=== PATIENT | female | born 1990 | race Caucasian/White ===

== ENCOUNTER 2021-01-20 19:16 | Emergency (ER) | payer OTHER, SELFPAY ==
[2021-01-20 19:24] VITALS: BP 127/83; PULSE 84; RESP 18; TEMP 36.8; O2SAT 96
--- NOTE | 2021-01-20 21:04 | ED_ITS ---
HPI - Dental/Oral General Chief complaint: Dental/Oral Stated complaint: dental problems Time Seen by Provider: 01/20/21 20:37 History of Present Illness HPI Narrative: Patient is a 30-year-old female who presents ER with dental pain. Tooth #12. No facial swelling. Pain began last night. Has chronic fractured tooth over the last couple months. No difficulty breathing or swallowing. Pain increases with eating and drinking. Related Data Allergies Allergy/AdvReac Type Severity Reaction Status Date / Time shellfish derived Allergy Intermediate Swelling Verified 08/25/17 00:02 Review of Systems Constitutional: Constitutional: Denies chills, Denies fever(s) and Denies weakness ENT: Denies dysphagia, Denies nasal congestion and Denies sore throat Comments: Dental pain PMFSH Past Medical History Medical History (Updated 01/20/21 @ 21:06 by David Roberson MD) Healthy female adult Surgical History Surgical History (Updated 01/20/21 @ 21:05 by David Roberson MD) No history of previous surgery Exam Narrative: Exam Narrative: GENERAL: Well-appearing, well-nourished, and in no acute distress. HEAD: Normocephalic, atraumatic. ENT: Mucous membranes moist. Poor dentition. No drainable abscess. No facial swelling. Tender tooth #12. SKIN: Warm, dry, no rash. NEURO: Alert and oriented x3. Course Course Emergency Course: Discharge home. Parrish here for pain. Vital Signs Vital signs: Vital Signs Temperature 98.2 F 01/20/21 19:24 Pulse Rate 84 01/20/21 19:24 Respiratory Rate 18 01/20/21 19:24 Blood Pressure 127/83 01/20/21 19:24 Pulse Oximetry 96 01/20/21 19:24 Temperature 98.2 F 01/20/21 19:24 Pulse Rate 84 01/20/21 19:24 Respiratory Rate 18 01/20/21 19:24 Blood Pressure 127/83 01/20/21 19:24 Pulse Oximetry 96 01/20/21 19:24 Discharge Plan Discharge Clinical Impression: Toothache Patient Disposition: Home, Self-Care Condition: Stable Instructions: Antibiotic Form, Toothache (ED) Additional Instructions: Return to the ER if you cannot breathe, you cannot swallow, you lose consciousness, you have additional concerns. Prescriptions: New ibuprofen 800 mg tablet 800 mg PO TID Qty: 20 RF: 0 amoxicillin-pot clavulanate [Augmentin] 875-125 mg tablet 1 tablet PO Q12H Qty: 14 RF: 0 Follow-up/Referrals: Dental Referral Line [Outside] - 1 Week CHARITO,JACK POMPA [Primary Care Provider] - Stand Alone Forms: Work/School Release IP
[2021-01-20] MEDS: HYDROcodone/acetaminophen (*CRX) 5-325 MG TABLET 1 TAB PO (21:08)
[2021-01-20 21:26] VITALS: BP 127/84; PULSE 86; RESP 16; TEMP 36.3; O2SAT 98
== END 2021-01-20 21:27 | disposition home or self-care (01) ==
PROVIDERS: Emergency Provider Emergency Medicine; PCP Physician Assistant
DX: K08.89 Other specified disorders of teeth and supporting structures (principal)
CPT/HCPCS: 99283; A9270

== ENCOUNTER 2021-04-21 08:07 | Emergency (ER) | payer OTHER, SELFPAY ==
[2021-04-21 08:08] VITALS: BP 110/73; PULSE 89; RESP 16; TEMP 36.2; O2SAT 95
--- NOTE | 2021-04-21 08:35 | ED.DENTAL ---
HPI - Dental/Oral General Chief complaint: Dental/Oral Stated complaint: broken tooth Time Seen by Provider: 04/21/21 08:31 Source: patient Mode of arrival: ambulatory Limitations: no limitations History of Present Illness HPI Narrative: 30-year-old with no major medical problems here with a fractured tooth. She states that she was eating breakfast, broke her tooth complaints of pain she denies any fever or chills. MD Complaint: tooth pain Location: Tooth # (14) Onset (ago): hour(s) (1) Severity: moderate Exacerbating factors: nothing Related Data Home Medications Medication Instructions Recorded Confirmed albuterol sulfate INHALATION 04/21/21 epinephrine 04/21/21 medroxyprogesterone mg IM 04/21/21 Allergies Allergy/AdvReac Type Severity Reaction Status Date / Time shellfish derived Allergy Intermediate Swelling Verified 04/21/21 08:11 Review of Systems Review of Systems: All systems reviewed & are unremarkable except as noted in HPI and below Constitutional: Constitutional: Reports no additional constitutional complaints Eyes: Eyes: Reports no additional eye complaints ENT: Reports as per HPI Cardiovascular: Cardiovascular: Reports no additional cardiovascular complaints Respiratory: Respiratory: Reports no additional respiratory complaints Gastrointestinal: Gastrointestinal: Reports no additional gastrointestinal complaints Musculoskeletal: Musculoskeletal: Reports no additional musculoskeletal complaints PMFSH Past Medical History Medical History Healthy female adult Surgical History Surgical History No history of previous surgery Exam Narrative: GENERAL: Well-appearing, well-nourished, and in no acute distress. HEAD: Normocephalic, atraumatic. EYES: PERRLA and EOMI. ENT: Mucous membranes moist. Fracture #14 NECK: Supple. CHEST: Clear to auscultation. No respiratory distress. HEART: Regular rate and rhythm. No murmur heard. Normal peripheral pulses.. EXTREMITIES: Normal range of motion. No edema. SKIN: Warm, dry, no rash. NEURO: No focal deficits. Alert and oriented x3. PSYCH: Normal mood and affect. Course Vital Signs Vital signs: Vital Signs Temperature 36.2 C L 04/21/21 08:08 Pulse Rate 89 04/21/21 08:08 Respiratory Rate 16 04/21/21 08:08 Blood Pressure 110/73 04/21/21 08:08 Pulse Oximetry 95 04/21/21 08:08 Temperature 36.2 C L 04/21/21 08:08 Pulse Rate 89 04/21/21 08:08 Respiratory Rate 16 04/21/21 08:08 Blood Pressure 110/73 04/21/21 08:08 Pulse Oximetry 95 04/21/21 08:08 Discharge Plan Discharge Clinical Impression: Dental caries Fracture of tooth Qualifiers: Encounter type: initial encounter Fracture type: closed Qualified Code(s): S02.5XXA - Fracture of tooth (traumatic), initial encounter for closed fracture Patient Disposition: Home, Self-Care Condition: Stable Instructions: Antibiotic Form, Toothache (ED) Additional Instructions: Take antibiotic as prescribed, follow-up with the dentist Prescriptions: New amoxicillin 875 mg tablet 875 mg PO Q12H Qty: 20 RF: 0 naproxen [Naprosyn] 500 mg tablet 500 mg PO BID Qty: 14 RF: 0 No Action epinephrine 0.3 mg/0.3 mL auto-injector RF: 0 albuterol sulfate 90 mcg/actuation HFA aerosol inhaler INHALATION RF: 0 medroxyprogesterone 150 mg/mL suspension IM RF: 0 Follow-up/Referrals: PHYSICIAN NOT ON STAFF,NONSTAFF [Primary Care Provider] - Stand Alone Forms: Work/School Release IP Time of Disposition: 08:38
== END 2021-04-21 08:49 | disposition home or self-care (01) ==
LOC: ANHED 08:41
PROVIDERS: Emergency Provider Family Medicine
DX: K02.9 Dental caries, unspecified (principal); S02.5XXA Fracture of tooth (traumatic), initial encounter for closed fracture; X58.XXXA Exposure to other specified factors, initial encounter
CPT/HCPCS: 99283

== ENCOUNTER 2021-06-24 18:34 | Emergency (ER) | payer OTHER, SELFPAY ==
--- NOTE | ~2021-06-24 | XR_ITS ---
XR wrist LT min 3V 06/24/2021 18:54 Indication: Medial wrist pain Procedure: 4 views left wrist Comparison: No prior studies for comparison. Findings: No acute fracture, subluxation or dislocation. No significant soft tissue abnormality. Ther e is normal mineralization with anatomic alignment. No foreign bodies. Impression: 1: No acute bone or joint abnormality. Reviewed, dictated and finalized at location A. ANALYST ETL DEVELOPER Impression: 1: No acute bone or joint abnormality.
[2021-06-24 18:39] VITALS: BP 125/80; PULSE 86; RESP 16; TEMP 36.1; O2SAT 100
--- NOTE | 2021-06-24 19:58 | ED.UPPEXIN ---
HPI - Extremity Injury (Upper) General Chief Complaint: Extremity Injury, Upper Stated Complaint: left wrist injury Time Seen by Provider: 06/24/21 19:31 Source: patient and RN notes reviewed Mode of arrival: ambulatory Limitations: no limitations History of Present Illness HPI narrative: Patient complaining of left wrist pain, started 4 days ago while using grilled press at work. Patient felt a pop at that time, and been hurting since. Worse with certain activities using left hand better when she does not use left wrist. Related Data Home Medications Medication Instructions Recorded Confirmed albuterol sulfate INHALATION 04/21/21 epinephrine 04/21/21 medroxyprogesterone mg IM 04/21/21 Allergies Allergy/AdvReac Type Severity Reaction Status Date / Time shellfish derived Allergy Intermediate Swelling Verified 06/24/21 19:37 Review of Systems Review of Systems: CONSTITUTIONAL: Denies fever, chills, or sweats. EYES: Denies visual changes, redness, or discharge. ENT: Denies rhinorrhea, congestion, sore throat, or otalgia. CARDIOVASCULAR: Denies chest pain, palpitations, or edema. RESPIRATORY: Denies cough or dyspnea. GASTROINTESTINAL: Denies abdominal pain, nausea, vomiting, or diarrhea. GENITOURINARY: Denies dysuria or hematuria. SKIN: Denies rash or itching. MUSCULOSKELETAL: Denies back pain, joint pain, or myalgia. NEUROLOGIC: Denies headache, numbness, or weakness. PSYCHIATRIC: Denies anxiety or depression. PMFSH Past Medical History Medical History Healthy female adult Surgical History Surgical History No history of previous surgery Exam Narrative: General appearance: Well-developed, well-nourished Skin: Normal color Head: Normocephalic, nontraumatic Eyes: Clear conjunctiva Chest and respiratory: Airway patent, no respiratory distress, no accessory muscle use Heart: Regular rate/rhythm Vascular: Normal peripheral pulses, normal capillary refill. Musculoskeletal: Left wrist showed diffuse tenderness, no swelling, no deformity. Neurologic: Alert and oriented ?3, SHOULDER JOINER is normal as tested, no gross motor deficit Course Course Emergency Course: Stable Reevaluation(s) Reevaluation #1: Patient declined to be off work tomorrow Date: 06/24/21 Time: 20:16 Vital Signs Vital signs: Vital Signs Temperature 36.1 C L 06/24/21 18:39 Pulse Rate 86 06/24/21 18:39 Respiratory Rate 16 06/24/21 18:39 Blood Pressure 125/80 06/24/21 18:39 Pulse Oximetry 100 06/24/21 18:39 Temperature 36.1 C L 06/24/21 18:39 Pulse Rate 86 06/24/21 18:39 Respiratory Rate 16 06/24/21 18:39 Blood Pressure 125/80 06/24/21 18:39 Pulse Oximetry 100 06/24/21 18:39 MDM - Extremity Injury (Upper) Imaging Data Radiologist's impression: Impressions Wrist X-Ray 06/24/21 18:57 Impression: 1: No acute bone or joint abnormality. Critical Care Time Critical Care Time Critical Care Time: No Discharge Plan Discharge Clinical Impression: Sprain and strain of wrist Patient Disposition: Home, Self-Care Condition: Stable Instructions: Antibiotic Form, Wrist Sprain (ED) Additional Instructions: Return if symptoms are worsening , call your family physician for appointment, take Tylenol as as needed for aches and pain, continue home medications. , keep left wrist elevated, left wrist splint, Prescriptions: New naproxen [Naprosyn] 500 mg tablet 500 mg PO BID PRN (Reason: pain) Qty: 10 RF: 0 No Action epinephrine 0.3 mg/0.3 mL auto-injector RF: 0 albuterol sulfate
--- NOTE | 2021-06-24 21:05 | PC.NURSE ---
splint not available, erp provided a picture for the patient to purchase at the store.
[2021-06-24 21:06] VITALS: BP 120/72; PULSE 85; RESP 16; O2SAT 100
== END 2021-06-24 21:10 | disposition home or self-care (01) ==
PROVIDERS: Emergency Provider Emergency Medicine; PCP Physician Assistant
DX: S63.502A Unspecified sprain of left wrist, initial encounter (principal); X50.0XXA Overexertion from strenuous movement or load, initial encounter
CPT/HCPCS: 29125; 73110; 99283

== ENCOUNTER 2021-07-06 00:09 | Emergency (ER) | payer OTHER, SELFPAY ==
[2021-07-06 00:14] VITALS: BP 121/75; PULSE 77; RESP 18; TEMP 37.1; O2SAT 100
[2021-07-06 04:20] VITALS: BP 99/61; PULSE 77; RESP 18; O2SAT 98
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
[2021-07-06 05:52] VITALS: BP 120/78; PULSE 85; RESP 16; O2SAT 99
== END 2021-07-06 05:53 | disposition home or self-care (01) ==
PROVIDERS: Emergency Provider Emergency Medicine
DX: R07.9 Chest pain, unspecified (principal); S39.92XA Unspecified injury of lower back, initial encounter; R10.84 Generalized abdominal pain; M79.606 Pain in leg, unspecified; V49.40XA Driver injured in collision with unspecified motor vehicles in traffic accident, initial encounter
CPT/HCPCS: 99283

== ENCOUNTER 2021-07-10 19:04 | Emergency (ER) | payer OTHER, SELFPAY ==
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
[2021-07-10 19:07] VITALS: BP 140/89; PULSE 96; RESP 16; TEMP 36; O2SAT 100
[2021-07-10 22:08] LABS: Basophils Percent Auto 0.3 % (0.2-1.2); Eosinophils Absolute Auto 0.5 K/mm3 (0-0.3); Eosinophils Percent Auto 4.8 % (0-4.4); Hematocrit 40.8 % (37.0-47.0); Hemoglobin 13.9 g/dL (12.0-15.0); Immature Granulocyte Absolute 0.04 K/mm3 (0.00-0.031); Immature Granulocyte Percent A 0.4 % (0-0.5); Lymphocytes Absolute Auto 3.31 K/mm3 (0.9-3.2); Lymphocytes Percent Auto 32.1 % (18.3-44.2); Mean Corpuscular HGB Conc 34.1 g/dl (32-36); Mean Corpuscular Hemoglobin 31.5 pg (26-34); Mean Corpuscular Volume 92.5 fl (80-100); Mean Platelet Volume 10.8 fl (7.4-10.4); Monocytes Absolute Auto 0.8 K/mm3 (0.1-0.6); Monocytes Percent Auto 7.7 % (2.6-8.5); Neutrophils Absolute Auto 5.6 K/mm3 (1.3-6.7); Neutrophils Percent Auto 54.7 % (45.5-73.1); Platelet Count Result 248 k/mm3 (150-375); Red Blood Count 4.41 M/mm3 (4.2-5.4); Red Cell Distribution Width 12.8 % (11.5-14.5); White Blood Count 10.3 K/mm3 (4.5-10.0)
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
[2021-07-10 22:17] LABS: Alanine Aminotransferase 53 U/L (4-35); Albumin Level 4.6 g/dL (3.5-5.1); Alkaline Phosphatase 78 U/L (38-126); Anion Gap 10 mmol/L (8-16); Aspartate Amino Transferase 32 U/L (14-36); Bilirubin,Total 0.5 mg/dL (0.2-1.3); Blood Urea Nitrogen 14 mg/dL (7-17); Calcium 9.4 mg/dL (8.4-10.2); Carbon Dioxide 20 mmol/L (22-30); Chloride 106 mmol/L (98-107); Estimated CRCL calculation 121 ml/min; Estimated Glomerular Filt Rate > 60; Glucose 102 mg/dL (65-110); Potassium 3.9 mmol/L (3.4-5.0); Sodium 136 mmol/L (137-145)
[2021-07-10 22:46] VITALS: BP 119/88; PULSE 78; RESP 18; TEMP 36.5; O2SAT 100
[2021-07-10 23:14] LABS: Add Urine Microscopic? NO; Appearance Urine Clear (Clear); Bilirubin Urine Negative (Negative); Blood Urine Negative (Negative); Color Urine Yellow (Yellow); Glucose Urine UA Negative (Negative); Ketones Urine Negative (Negative); Leukocyte Esterase Ur Negative LEU/UL (Negative); Nitrate Urine Negative (Negative); Protein Urine Negative (Negative); Urobilinogen Urine Negative mg/dL (<2.0)
--- NOTE | 2021-07-10 23:15 | PC.NURSE ---
Assumed care of pt, report received from Cinthia ANSARI. Pt in imaging at this time.
[2021-07-10 23:57] VITALS: BP 108/75; PULSE 93; RESP 16; O2SAT 100
[2021-07-11] MEDS: KETOROLAC 30 MG/ML VIAL (*BKC) IV PUSH (00:07)
[2021-07-11 00:30] VITALS: BP 105/74; PULSE 78; RESP 16; O2SAT 98
== END 2021-07-11 00:35 | disposition home or self-care (01) ==
PROVIDERS: Emergency Provider Emergency Medicine
DX: S39.92XA Unspecified injury of lower back, initial encounter (principal); S16.1XXA Strain of muscle, fascia and tendon at neck level, initial encounter; R10.9 Unspecified abdominal pain; K57.90 Diverticulosis of intestine, part unspecified, without perforation or abscess without bleeding; N20.0 Calculus of kidney; V43.52XA Car driver injured in collision with other type car in traffic accident, initial encounter
CPT/HCPCS: 36415; 71046; 72125; 74176; 80053; 81003; 81025; 85025; 96374; 99284; J1885

== ENCOUNTER 2022-04-11 11:10 | Emergency (ER) | payer OTHER, SELFPAY ==
--- NOTE | ~2022-04-11 | CT_ITS ---
EXAMINATION:CT diagnostic chest w con DATE: 04/11/2022 14:49 INDICATION: Shortness of breath. TECHNIQUE: Computed tomography (CT) of the chest was performed with 75 mL Omnipaque 350 intravenous c ontrast. Automated exposure control and iterative reconstruction technique were employed. The dose-le ngth product (DLP) was 245.55 mGy-cm. COMPARISON: CT abdomen and pelvis 07/10/2021 FINDINGS: The lungs demonstrate mild atelectasis. No pleural effusion. The heart size is normal. The heart size is normal. No pericardial effusion. There are changes of cholecystectomy. There is cortica l thinning of the kidneys. The bones are unremarkable. IMPRESSION: 1. No etiology for the patient's symptoms. Reviewed, dictated and finalized at location A.
[2022-04-11 11:12] VITALS: BP 126/85; PULSE 75; RESP 16; TEMP 36.6; O2SAT 100
--- NOTE | 2022-04-11 12:32 | ED.SOB ---
HPI - SOB/Dyspnea General Chief Complaint: Shortness of Breath/Dyspnea Stated Complaint: SOB Time Seen by Provider: 04/11/22 12:25 Source: patient and RN notes reviewed Mode of arrival: ambulatory Limitations: no limitations History of Present Illness HPI Narrative: 14 years old white female presents with shortness of breath after having esophageal stretching procedure 48 hours ago at [facility]/Dr. Polk. She denies any fever, chills, nausea, vomiting, coughing, chest pain or back pain. Also complaining of epigastric pain. Patient is able to eat and keeps everything down without any restriction. Patient reports that her shortness of breath is episodic's, mainly at rest, last for few seconds up to 1 minute then spontaneously go away. Currently does not have any shortness of breath. Patient denies aggravating or relieving factors patient patient is a smoker and have history of asthma, currently on albuterol treatment. Patient reports a lot of stress lately Related Data Home Medications Medication Instructions Recorded Confirmed albuterol sulfate 90 mcg/actuation inhalation 04/21/21 aerosol inhaler epinephrine 0.3 mg/0.3 mL 04/21/21 injection, auto-injector medroxyprogesterone 150 mg/mL mg IM 04/21/21 intramuscular suspension Allergies Allergy/AdvReac Type Severity Reaction Status Date / Time shellfish derived Allergy Intermediate Swelling Verified 07/10/21 22:56 Review of Systems Review of Systems: All systems reviewed & are unremarkable except as noted in HPI and below PMFSH Past Medical History Medical History Healthy female adult Surgical History Surgical History No history of previous surgery Social History Social History Smoking status: Never smoker Exam Narrative: General appearance: Well-developed, well-nourished Skin: Normal color Head: Normocephalic, nontraumatic Eyes: Clear conjunctiva ENT: Oropharynx normal, ears normal, nose normal Neck: Supple, nontender Chest and respiratory: Airway patent, no respiratory distress, no accessory muscle use Heart: Regular rate/rhythm Abdomen: Soft, mild epigastric tenderness, no guarding or rebound, no organomegaly, quiet bowel sounds Vascular: Normal peripheral pulses, normal capillary refill. Musculoskeletal: Normal range of motion, nontender back Neurologic: Alert and oriented ?3, [employer] is normal as tested, no gross motor deficit Course Course Emergency Course: Work-up today showed no significant finding to explain patient's shortness of breath, her oxygenation on room air is 99% Consultations Consultation #1: Dr. Polk, back winder at [facility], Outpatient follow-up at 8 AM on April 17, 2022 Date: 04/11/22 Time: 15:44 Vital Signs Vital signs: Vital Signs Temperature 36.6 C 04/11/22 11:12 Pulse Rate 75 04/11/22 11:12 Respiratory Rate 16 04/11/22 11:12 Blood Pressure 126/85 04/11/22 11:12 Pulse Oximetry 100 04/11/22 11:12 Oxygen Delivery Room Air 04/11/22 11:12 Temperature 36.6 C 04/11/22 11:12 Pulse Rate 75 04/11/22 11:12 Respiratory Rate 16 04/11/22 11:12 Blood Pressure 126/85 04/11/22 11:12 Pulse Oximetry 100 04/11/22 11:12 Oxygen Delivery Room Air 04/11/22 11:47 MDM - SOB/Dyspnea Differential Diagnosis Differential diagnosis: Likely community acquired pneumonia, asthma with exacerbation and other (Anxiety, depression) ECG Data EKG #1: Attestation: I personally reviewed and interpreted this ECG as follows:
--- NOTE | 2022-04-11 12:35 | ECG_ITS ---
Measurements Intervals Shirley Rate: 69 P: 23 SD: 125 QRS: 25 QRSD: 89 T: 25 QT: 393 QTc: 423 Interpretive Statements SINUS RHYTHM NORMAL ECG NO PREVIOUS ECG AVAILABLE FOR COMPARISON Electronically Signed On 04-11-2022 13:00:03 CDT by Reed Atkinson D.O.
[2022-04-11 12:51] VITALS: BP 124/84; PULSE 78; RESP 18; O2SAT 97
[2022-04-11 12:52] VITALS: BP 124/84; PULSE 67; RESP 14; O2SAT 97
[2022-04-11 13:01] VITALS: BP 114/81; PULSE 73; RESP 17; O2SAT 99
[2022-04-11 13:27] LABS: Basophils Percent Auto 0.4 % (0.2-1.2); Eosinophils Absolute Auto 0.2 K/mm3 (0-0.3); Eosinophils Percent Auto 2.1 % (0-4.4); Immature Granulocyte Absolute 0.02 K/mm3 (0.00-0.031); Immature Granulocyte Percent A 0.3 % (0-0.5); Lymphocytes Absolute Auto 1.76 K/mm3 (0.9-3.2); Lymphocytes Percent Auto 23.1 % (18.3-44.2); Mean Corpuscular HGB Conc 34.1 g/dl (32-36); Mean Corpuscular Hemoglobin 31.2 pg (26-34); Mean Corpuscular Volume 91.3 fl (80-100); Mean Platelet Volume 10.9 fl (7.4-10.4); Monocytes Absolute Auto 0.5 K/mm3 (0.1-0.6); Monocytes Percent Auto 6.7 % (2.6-8.5); Neutrophils Absolute Auto 5.1 K/mm3 (1.3-6.7); Neutrophils Percent Auto 67.4 % (45.5-73.1); Platelet Count Result 244 k/mm3 (150-375); Red Blood Count 4.49 M/mm3 (4.2-5.4); Red Cell Distribution Width 12.6 % (11.5-14.5); White Blood Count 7.6 K/mm3 (4.5-10.0)
[2022-04-11 13:34] LABS: Alanine Aminotransferase 83 U/L (6-35); Albumin Level 4.8 g/dL (3.5-5.1); Alkaline Phosphatase 89 U/L (38-126); Anion Gap 14 mmol/L (8-16); Aspartate Amino Transferase 43 U/L (14-36); Bilirubin,Total 0.6 mg/dL (0.2-1.3); Blood Urea Nitrogen 8 mg/dL (7-17); Calcium 9.3 mg/dL (8.4-10.2); Carbon Dioxide 22 mmol/L (22-30); Chloride 105 mmol/L (98-107); Estimated CRCL calculation 102 ml/min; Estimated Glomerular Filt Rate > 60; Glucose 94 mg/dL (65-110); Potassium 4.4 mmol/L (3.4-5.0); Sodium 141 mmol/L (137-145)
[2022-04-11 14:01] VITALS: BP 110/81; PULSE 82; RESP 16; O2SAT 97
[2022-04-11 15:48] VITALS: BP 101/56; PULSE 68; RESP 13; O2SAT 94
== END 2022-04-11 15:52 | disposition home or self-care (01) ==
PROVIDERS: Emergency Provider Emergency Medicine
DX: R06.02 Shortness of breath (principal); J45.909 Unspecified asthma, uncomplicated; F41.8 Other specified anxiety disorders; Z79.51 Long term (current) use of inhaled steroids
CPT/HCPCS: 36415; 71260; 80053; 81025; 85025; 93005; 99284; Q9967

== ENCOUNTER 2022-05-13 07:25 | Observation (INO) | payer BC, OTHER, SELFPAY ==
[2022-05-13] VITALS (16 sets, daily range): BP systolic 91–129; BP diastolic 57–92; PULSE 57–85; RESP 9–21; TEMP 36.2–37.3; O2SAT 96–100; BMI 34.7
--- NOTE | ~2022-05-13 | XR_ITS ---
EXAMINATION: XR abdomen/kub 1V INDICATION: Left ureteral stone TECHNIQUE: Supine views of the abdomen were obtained on 2 radiographs. COMPARISON: CT from today FINDINGS: A 3 mm stone projects at expected location of the left ureteropelvic junction at the level of the left L3 transverse process. No additional urolithiasis is identified. The bowel gas pattern is normal. Cholecystectomy clips are noted. IMPRESSION: 1. 3 mm left ureteropelvic junction stone. Reviewed, dictated and finalized at location A.
--- NOTE | ~2022-05-13 | CT_ITS ---
EXAMINATION: CT abdomen pelvis wo con DATE: 05/13/2022 09:39 INDICATION: Left flank pain radiating to the left lower quadrant TECHNIQUE: Computed tomography (CT) of the abdomen and pelvis was performed without intravenous contr ast. Automated exposure control and iterative reconstruction technique were employed. The dose-length product was 620.99 mGy-cm. COMPARISON: 07/10/2021 FINDINGS: Minimal dependent predominant atelectasis in the bilateral lower lungs. Heart size is normal. No alex cardial or pleural effusion. Diffuse hepatic steatosis. Cholecystectomy clips at the gallbladder richardson a. Spleen, pancreas and bilateral adrenal glands are normal. 3 mm obstructing stone at the left urete ropelvic junction with mild left hydronephrosis. Additional 1 mm nonobstructing stones at upper pole calyx of the left kidney and lower pole calyx of the right kidney. There are few scattered clonic div erticula without adjacent inflammatory change to suggest diverticulitis. No bowel obstruction. Small fat-containing umbilical hernia. Decompressed bladder, anteverted uterus and bilateral adnexa are unr emarkable. No free intraperitoneal gas or fluid. No pathologically enlarged abdominal or pelvic lymph adenopathy. Bones are unremarkable. IMPRESSION: 1. Bilateral nephrolithiasis with obstructing 3 mm left ureteropelvic junction stone with mild left h ydronephrosis. Reviewed, dictated and finalized at location B. IMPRESSION: 1. Bilateral nephrolithiasis with obstructing 3 mm left ureteropelvic junction stone with mild left hydronephrosis.
[2022-05-13 07:53] LABS: Basophils Percent Auto 0.3 % (0.2-1.2); Eosinophils Absolute Auto 0.4 K/mm3 (0-0.3); Eosinophils Percent Auto 6.4 % (0-4.4); Hematocrit 42.4 % (37.0-47.0); Hemoglobin 13.9 g/dL (12.0-15.0); Immature Granulocyte Absolute 0.02 K/mm3 (0.00-0.031); Immature Granulocyte Percent A 0.3 % (0-0.5); Lymphocytes Absolute Auto 1.92 K/mm3 (0.9-3.2); Lymphocytes Percent Auto 29.2 % (18.3-44.2); Mean Corpuscular HGB Conc 32.8 g/dl (32-36); Mean Corpuscular Hemoglobin 30.9 pg (26-34); Mean Corpuscular Volume 94.2 fl (80-100); Mean Platelet Volume 10.9 fl (7.4-10.4); Monocytes Absolute Auto 0.7 K/mm3 (0.1-0.6); Monocytes Percent Auto 11.1 % (2.6-8.5); Neutrophils Absolute Auto 3.5 K/mm3 (1.3-6.7); Neutrophils Percent Auto 52.7 % (45.5-73.1); Platelet Count Result 222 k/mm3 (150-375); White Blood Count 6.6 K/mm3 (4.5-10.0)
--- NOTE | 2022-05-13 07:54 | ED.ABDPAIN ---
HPI - Abdominal Pain General Chief Complaint: Abdominal Pain Stated Complaint: left sided flank pain Time Seen by Provider: 05/13/22 07:40 History of Present Illness HPI narrative: Patient is a 31-year-old female presenting with left flank pain. Patient states that she was driving this morning when she developed acute onset left flank pain that radiates to her left lower quadrant. States that she also became nauseated and had multiple episodes of emesis. States that she tried to urinate but was only able to urinate a small amount. Denies changes in bowel movements. Denies similar episodes in the past. Denies recent fevers, headache, chest pain, shortness of breath, dysuria. Denies vaginal bleeding. Related Data Home Medications Medication Instructions Recorded Confirmed albuterol sulfate 90 mcg/actuation 2 puff inhalation Q4H PRN 04/21/21 05/13/22 aerosol inhaler Shortness Of Breath epinephrine 0.3 mg/0.3 mL 0.3 ml subcut DAILY PRN Allergic 04/21/21 05/13/22 injection, auto-injector Reaction medroxyprogesterone 150 mg/mL 150 mg IM Q3M 04/21/21 05/13/22 intramuscular suspension Allergies Allergy/AdvReac Type Severity Reaction Status Date / Time shellfish derived Allergy Intermediate Swelling Verified 05/13/22 16:28 Review of Systems Review of Systems: All systems reviewed & are unremarkable except as noted in HPI and below PMFSH Past Medical History Medical History (Updated 05/14/22 @ 16:03 by Kaitlin Christiansen MD) Anxiety and depression Fatty liver History of esophageal dilatation Surgical History Surgical History (Updated 05/13/22 @ 21:30 by Dayana Salazar NP) History of appendectomy History of esophagogastroduodenoscopy Hx of cholecystectomy Family History Family History (Updated 05/13/22 @ 21:32 by Dayana Salazar NP) Grandparent Diabetes mellitus Pancreatic cancer Mother Graves disease Hyperthyroidism Shar's disease Father Gallbladder disease Social History Social History (Updated 05/13/22 @ 21:33 by Dayana Salazar NP) Social History: the patient uses marijuana for her anxiety. She has 2 children and is . 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 The patient used to smoke cigarettes. She quit drinking when she found out she has a fatty liver. She does not have a durable power environmental attorney for healthcare. Code status full code Smoking packs per day: 0.05 Smoking cigarettes per day: 1.0 Years smoked: 2 Smoking pack-years: 0.10 Smoking status: Former smoker Tobacco type: cigarettes Alcohol intake: never Substance use type: marijuana Spiritual care concerns: No Exam Narrative: GENERAL: Well-appearing, well-nourished, appears uncomfortable HEAD: Normocephalic, atraumatic. EYES: PERRLA and EOMI. ENT: Nares clear, no rhinorrhea or epistaxis. Mucous membranes moist. NECK: Supple. CHEST: Clear to auscultation. No respiratory distress. HEART: Regular rate and rhythm. No murmur heard. Normal peripheral pulses. ABDOMEN: Tender in the left lower quadrant with positive left-sided costovertebral angle tenderness EXTREMITIES: Normal range of motion. No edema. SKIN: Warm, dry, no rash. NEURO: No focal deficits. Alert and oriented x3. PSYCH: Normal mood and affect. Course Course Emergency Course: Patient is a 31-year-old female presenting with left flank and abdominal pain. Vitals within normal limit her exam remarkable for the above. Patient found to have 3 mm UPJ stone on the left. Her urine also appears infected. She received a dose of IV Rocephin. Urology recommended discharge with antibiotics as long as her symptoms can be controlled. Unfortunately continues to have significant pain and recurrent vomiting despite multiple doses of IV antiemetics and narcotics. Patient admitted to the hospitalist for further management. Vital Signs Vital signs: Vital Signs Temperature 99.2 F 05/13/22 07:32 Pulse Rate
[2022-05-13 08:04] LABS: Alanine Aminotransferase 71 U/L (6-35); Alkaline Phosphatase 82 U/L (38-126); Anion Gap 15 mmol/L (8-16); Aspartate Amino Transferase 45 U/L (14-36); Bilirubin,Total 0.9 mg/dL (0.2-1.3); Blood Urea Nitrogen 8 mg/dL (7-17); Calcium 9.4 mg/dL (8.4-10.2); Carbon Dioxide 22 mmol/L (22-30); Chloride 106 mmol/L (98-107); Estimated CRCL calculation 91 ml/min; Estimated Glomerular Filt Rate > 60; Glucose 118 mg/dL (65-110); Potassium 3.6 mmol/L (3.4-5.0); Sodium 143 mmol/L (137-145)
[2022-05-13] MEDS: ONDANSETRON INJ 4 MG/2 ML VIAL IV PUSH ×3 (08:10→14:36)
--- NOTE | 2022-05-13 08:26 | PC.NURSE ---
GATO from Dr. Christiansen for 4mg morphine
[2022-05-13] MEDS: MORPHINE SULFATE (*CRX) 4 MG/ML INJ IV PUSH ×2 (08:29→11:29)
[2022-05-13] MEDS: KETOROLAC 15 MG/ML VIAL (*BKC) IV PUSH ×2 (09:25→11:33)
[2022-05-13] MEDS: SODIUM CHLORIDE 0.9% IV 1,000 ML 999 ML IV CONT (09:25)
[2022-05-13 09:49] LABS: Add Urine Microscopic? YES; Appearance Urine Cloudy (Clear); Bacteria Urine Trace /hpf; Bilirubin Urine Negative (Negative); Blood Urine 3+ (Negative); Budding Yeast Urine Present /hpf; Color Urine Amber (Yellow); Glucose Urine UA Negative (Negative); Ketones Urine Negative (Negative); Leukocyte Esterase Ur 1+ LEU/UL (Negative); Mucus Urine Rare /lpf; Nitrate Urine Negative (Negative); Protein Urine 2+ mg/dL (Negative); RBC Urine >75 /hpf (0-2); Specific Grav Ur 1.024 (1.001-1.035); Squamous Epithelial Cell Urine Many /hpf (Few); Urobilinogen Urine Negative mg/dL (<2.0); WBC Urine 51-75 /hpf
[2022-05-13 11:53] LABS: Add Urine Microscopic? YES; Appearance Urine Cloudy (Clear); Bacteria Urine Trace /hpf; Bilirubin Urine Negative (Negative); Blood Urine 3+ (Negative); Budding Yeast Urine Present /hpf; Color Urine Yellow (Yellow); Glucose Urine UA Negative (Negative); Ketones Urine 1+ mg/dL (Negative); Leukocyte Esterase Ur 1+ LEU/UL (Negative); Mucus Urine Rare /lpf; Nitrate Urine Negative (Negative); Protein Urine Negative (Negative); RBC Urine >75 /hpf (0-2); Specific Grav Ur 1.018 (1.001-1.035); Squamous Epithelial Cell Urine Few /hpf (Few); Urobilinogen Urine Negative mg/dL (<2.0); WBC Urine 16-20 /hpf
--- NOTE | 2022-05-13 13:48 | WPDURCON ---
Assessment and Plan Assessment and plan (1) Left ureteral calculus: Code(s): N20.1 - Calculus of ureter Status: Acute Assessment and Plan: Patient is being admitted for pain control with IV fluids. Will re-evaluate in the morning to see how she is progressing. Have discussed possibility of stent placement versus ureteroscopy and stone extraction with patient. Urology Consult Note HPI Date Seen: 05/13/22 Time Seen: 13:48 Primary Care Provider: PHYSICIAN NOT ON STAFF Consult Narrative Reason for consult: Left ureteral calculus 3 mm Narrative: Jen Preston is a 31 year old female who presented to the emergency room with left renal colic and nausea and vomiting. She denied any fevers or dysuria. Evaluation in emergency room with a CT scan revealed a 3 mm proximal left ureteral calculus. There was only mild hydronephrosis noted. Emergency room physician stated that she was given Toradol as well as morphine and is still having some mild discomfort. At the time my evaluation she is resting comfortably but is anxious about going home given that she had prior pain. Patient is being admitted for pain control IV fluids. Will re-evaluate in the morning. Patient's white count is normal as is her creatinine. Urinalysis does have some leukocyte esterase but minimal white cells present at this time. Review of Systems Review of Systems: All systems reviewed & are unremarkable except as noted in HPI and below PMFSH Past Medical History Medical History Healthy female adult Surgical History Surgical History No history of previous surgery Social History Social History Smoking status: Never smoker Meds Home Medications and Allergies Home Medications Medication Instructions Recorded Confirmed Type albuterol sulfate 90 mcg/actuation inhalation 04/21/21 History aerosol inhaler amoxicillin 875 mg tablet 875 mg PO Q12H #20 tabs 04/21/21 Rx epinephrine 0.3 mg/0.3 mL 04/21/21 History injection, auto-injector medroxyprogesterone 150 mg/mL mg IM 04/21/21 History intramuscular suspension naproxen 500 mg tablet (Naprosyn) 500 mg PO BID #14 tabs 04/21/21 Rx naproxen 500 mg tablet (Naprosyn) 500 mg PO BID PRN pain #10 tabs 06/24/21 Rx cyclobenzaprine 10 mg tablet 10 mg PO TID PRN muscle spasm #30 07/06/21 Rx tabs ibuprofen 600 mg tablet (IBU) 600 mg PO Q6H PRN pain #20 tabs 07/11/21 Rx Allergies Allergy/AdvReac Type Severity Reaction Status Date / Time shellfish derived Allergy Intermediate Swelling Verified 05/13/22 07:35 Vital Signs Vital Signs - 24 hr 05/13/22 07:32 05/13/22 09:59 Temperature 37.3 C Pulse Rate 85 57 L Respiratory Rate 16 18 Blood Pressure 129/77 128/92 H Pulse Oximetry 98 98 Exam Const: General: cooperative Eyes: General: appearance normal, both eyes and all related structures Resp: Effort & Inspection: normal respiratory effort Cardio: Rate: regular rate Rhythm: regular rhythm Back/Spine/Pelvis: Back: no CVA tenderness Results Labs CBC & Chem 7: 05/13/22 07:48 05/13/22 07:48 Labs: Short CBC 05/13/22 Range/Units 07:48 WBC 6.6 (4.5-10.0) K/mm3 Hgb 13.9 (12.0-15.0) g/dL Hct 42.4 (37.0-47.0) % Plt Count 222 (150-375) k/mm3 BMP 05/13/22 07:48 Sodium 143 Potassium 3.6 Chloride 106 Carbon Dioxide 22 BUN 8 Creatinine 0.80 Glucose 118 H Calcium 9.4 Liver Function 05/13/22 Range/Units 07:48 Total Bilirubin 0.9 (0.2-1.3) mg/dL AST 45 H (14-36) U/L ALT 71 H (6-35) U/L Alkaline Phosphatase 82 (38-126) U/L Albumin 5.0 (3.5-5.1) g/dL Urine 05/13/22 05/13/22 Range/Units 09:26 11:31 Urine Color Evelyn Yellow (Yellow) Urine Appearance Cloudy H Cloudy
[2022-05-13 13:55] LABS: SARS-CoV-2 RNA PCR Positive
[2022-05-13] MEDS: fentaNYL CITRATE INJ (*CRX) 100 MCG/2 ML VIAL IV PUSH (14:36)
[2022-05-13] MEDS: SODIUM CHLORIDE 0.9% IV 1,000 ML 125 ML IV CONT ×2 (15:29→23:48)
--- NOTE | 2022-05-13 15:50 | PC.NURSE ---
This patient, Jen Preston, was admitted to [facility] Surg Room 301-01. Patient/family oriented to hospital policies and general routines including ID bracelet, bed and alarms, visiting hours, pain management, procedures, bathroom and other care routines, personal items, smoking policy, room service/diet, and visiting hours. Report from Cari ANSARI Information on how to activate the Rapid Response Team has been discussed. Patient/Family are encouraged to report perceived risks to care and to ask questions if they do not understand what they are told or what they should do.
--- NOTE | 2022-05-13 21:23 | PM.IMHP ---
H&P: HPI History of Present Illness Date/Time: 05/13/22 21:23 Chief Complaint: Abdominal pain Narrative: this is a 31-year-old female patient who has had a history of having a kidney stone that she has passed on her own. She presented to the emergency room with left flank pain. The patient stated that she was driving down the road when she developed this sharp pain to the left flank area. She became nauseated and had several episodes of emesis. She felt like she needs to urinate but was only dribbling a little bit. She has not had any problems with her bowel movements. The patient denied any fever chills. CT of the abdomen was read as bilateral nephrolithiasis with obstructing 3 mm left ureteropelvic junction stone with mild left hydronephrosis. Abdominal x-ray shows 3 mm left ureteropelvic junction stone. Urology has been consulted. The patient was slightly positive for UTI she was started on Rocephin and IV fluids. She was given morphine, ketorolac, and Zofran, as well as fentanyl in the emergency room. The patient is being admitted to observation status on the date of service of 05/13/2022. Review of Systems Review of Systems: See HPI All systems reviewed & are unremarkable except as noted in HPI and below Constitutional: Constitutional: Reports as per HPI and Reports no additional constitutional complaints Eyes: Eyes: Reports as per HPI and Reports no additional eye complaints ENT: Reports system reviewed and no additional complaints, except as documented and Reports Normal hearing present Cardiovascular: Cardiovascular: Reports no additional cardiovascular complaints Respiratory: Respiratory: Reports no additional respiratory complaints and Reports no additional respiratory complaints Gastrointestinal: Gastrointestinal: Reports as per HPI and Reports no additional gastrointestinal complaints Musculoskeletal: Musculoskeletal: Reports no additional musculoskeletal complaints Integumentary/Breasts: Skin/Breast: Reports system reviewed and no additional complaints, except as docu and Reports as per HPI Neurologic: Reports system reviewed and no additional complaints, except as documented, Reports as per HPI and Reports Normal hearing present Psychiatric: Psychiatric: Reports no additional psychiatric complaints and Reports as per HPI Endocrine: Endocrine: Reports no additional endocrine complaints Hematologic/Lymphatic: Hematologic/Lymphatic: Reports no additional hematologic/lymphatic complaints Allergic/Immunologic: Allergic/Immunologic: Reports no additional allergic/immunologic complaints [facility] Past Medical History Medical History (Updated 05/13/22 @ 21:45 by Dayana Salazar NP) Anxiety and depression Fatty liver History of esophageal dilatation Surgical History Surgical History (Updated 05/13/22 @ 21:30 by Dayana Salazar NP) History of appendectomy History of esophagogastroduodenoscopy Hx of cholecystectomy Family History Family History (Updated 05/13/22 @ 21:32 by Dayana Salazar NP) Grandparent Diabetes mellitus Pancreatic cancer Mother Graves disease Hyperthyroidism Shar's disease Father Gallbladder disease Social History Social History (Updated 05/13/22 @ 21:33 by Dayana Salazar NP) Social History: the patient uses marijuana for her anxiety. She has 2 children and is . 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 The patient used to smoke cigarettes. She quit drinking when she found out she has a fatty liver. She does not have a durable power regulatory attorney for healthcare. Code status full code Smoking packs per day: 0.05 Smoking cigarettes per day: 1.0 Years smoked: 2 Smoking pack-years: 0.10 Smoking status: Former smoker Tobacco type: cigarettes Alcohol intake: never Substance use type: marijuana Spiritual care concerns: No Meds Home Medications and Allergies Home Medications Medication Instructions R
[2022-05-14] MEDS: KETOROLAC 15 MG/ML VIAL (*BKC) IV PUSH (03:49)
[2022-05-14] MEDS: LORazepam INJ (*CRX) 2 MG/ML VIAL 0.5 MG IV PUSH (04:22)
[2022-05-14 06:00] VITALS: BP 100/64; PULSE 64; RESP 18; TEMP 36.7; O2SAT 98
[2022-05-14 07:41] LABS: Alanine Aminotransferase 63 U/L (6-35); Albumin Level 4.1 g/dL (3.5-5.1); Alkaline Phosphatase 64 U/L (38-126); Anion Gap 8 mmol/L (8-16); Aspartate Amino Transferase 36 U/L (14-36); Bilirubin,Total 0.9 mg/dL (0.2-1.3); Blood Urea Nitrogen 9 mg/dL (7-17); Calcium 8.5 mg/dL (8.4-10.2); Carbon Dioxide 22 mmol/L (22-30); Chloride 111 mmol/L (98-107); Estimated CRCL calculation 91 ml/min; Estimated Glomerular Filt Rate > 60; Glucose 101 mg/dL (65-110); Magnesium 2.1 mg/dL (1.6-2.3); Potassium 3.7 mmol/L (3.4-5.0); Sodium 141 mmol/L (137-145)
[2022-05-14 07:43] LABS: Basophils Percent Auto 0.1 % (0.2-1.2); Eosinophils Absolute Auto 0.1 K/mm3 (0-0.3); Eosinophils Percent Auto 1.7 % (0-4.4); Hemoglobin 12.4 g/dL (12.0-15.0); Immature Granulocyte Absolute 0.11 K/mm3 (0.00-0.031); Immature Granulocyte Percent A 1.4 % (0-0.5); Lymphocytes Absolute Auto 1.21 K/mm3 (0.9-3.2); Lymphocytes Percent Auto 15.9 % (18.3-44.2); Mean Corpuscular HGB Conc 32.6 g/dl (32-36); Mean Corpuscular Hemoglobin 31.3 pg (26-34); Mean Platelet Volume 11.6 fl (7.4-10.4); Monocytes Absolute Auto 0.5 K/mm3 (0.1-0.6); Monocytes Percent Auto 6.8 % (2.6-8.5); Neutrophils Absolute Auto 5.6 K/mm3 (1.3-6.7); Neutrophils Percent Auto 74.1 % (45.5-73.1); Platelet Count Result 186 k/mm3 (150-375); Red Blood Count 3.96 M/mm3 (4.2-5.4); Red Cell Distribution Width 12.8 % (11.5-14.5); White Blood Count 7.6 K/mm3 (4.5-10.0)
[2022-05-14 07:44] LABS: Lactic Acid Reflex 0.8 mmol/L (0.7-2.0)
--- NOTE | 2022-05-14 07:56 | PM.IMPN ---
Progress Note: A&P Assessment and Plan (1) Left ureteral calculus: Code(s): N20.1 - Calculus of ureter Status: Acute Assessment and Plan: - urology has been consulted. Suggested renal stent if her pain is not relieved in the morning. - continue with analgesics when blood pressure allows. At this point Tylenol is controlling her pain . Continue with ketorolac - continue with IV fluids. - strain all urine. - continue with antiemetics. (2) UTI (urinary tract infection): Code(s): N39.0 - Urinary tract infection, site not specified Status: Acute Assessment and Plan: - continue with Rocephin. Cultures pending. (3) Anxiety and depression: Code(s): F41.9 - Anxiety disorder, unspecified; F32.A - Depression, unspecified Status: Acute Assessment and Plan: - the patient uses marijuana when she becomes anxious. - she is not on any form of medication that is prescribed. - PRn Ativan. (4) COVID: Code(s): U07.1 - COVID-19 Status: Acute Assessment and Plan: -patient has no symptoms -Supportive care. - contact and droplet isolation. (5) Fatty liver: Code(s): K76.0 - Fatty (change of) liver, not elsewhere classified Status: Acute Assessment and Plan: -The patient has quit drinking- - the patient stated that she is on a low-fat diet. Subjective Date/time seen: 05/14/22 07:56 Exam Narrative: General:? Well-nourished, chronically ill-appearing older adult female, No acute distress. Neuro: awake, alert and oriented x4, speech clear, no focal neuro deficits noted HEENT:? normocephalic, atraumatic, PERRL, EOMI, sclerae anicteric, mucous membranes moist. Neck: Supple. Chest: RR even and unlabored. Lung sounds clear to auscultation bilaterally without wheezes, rhonchi or rales, nonlabored breathing Heart: regular rate, regular rhythm with S1-S2. No murmurs, gallops or rubs. Abdomen:? soft, obese, nondistended, normoactive bowel sounds, nontender to palpation. No guarding, suprapubic or rebound tenderness. Extremities: Moves all extremities equally and with full strength. No edema, erythema, or tenderness to palpation. Radial and dorsalis pedis pulses palpable and equal bilaterally. Skin: Fair, warm, dry and intact. No cyanosis. no rashes or lesions Psych: Neutral mood and affect, pleasant and cooperative. Objective Data Vital Signs Vital Signs: Vital Signs - 24 hr 05/13/22 09:59 05/13/22 15:20 05/13/22 11:29 Temperature 98.2 F Pulse Rate 57 L 62 61 Respiratory Rate 18 13 13 Blood Pressure 128/92 H 99/61 L Pulse Oximetry 98 97 98 Oxygen Delivery 05/13/22 11:30 05/13/22 11:45 05/13/22 12:00 Temperature Pulse Rate 58 L 65 67 Respiratory Rate 12 21 H 15 Blood Pressure Pulse Oximetry 100 96 98 Oxygen Delivery 05/13/22 12:16 05/13/22 12:30 05/13/22 12:45 Temperature Pulse Rate 66 66 65 Respiratory Rate 14 15 15 Blood Pressure Pulse Oximetry 98 98 99 Oxygen Delivery 05/13/22 13:00 05/13/22 13:15 05/13/22 15:21 Temperature Pulse Rate 70 71 58 L Respiratory Rate 14 16 9 L Blood Pressure 99/61 L Pulse Oximetry 100 100 97 Oxygen Delivery 05/13/22 15:31 05/13/22 16:12 05/13/22 16:00 Temperature 97.2 F L Pulse Rate 72 59 L Respiratory Rate 17 17 Blood Pressure 97/65 L 105/65 Pulse Oximetry 98 100 Oxygen Delivery Room Air 05/13/22 21:58 05/13/22 20:00 05/14/22 06:00 Temperature 97.7 F 98.1 F Pulse Rate 59 L 64 Respiratory Rate 18 18 Blood Pressure 91/57 L 100/64 Pulse Oximetry 98 98 Oxygen Delivery Room Air Intake/Output Intake/Output: Intake & Output 05/11/22 05/12/22 05/13/22 05/14/22 23:59 23:59 23:59 23:59 Intake Total 2150 240 Output Total 200 Balance 1950 240 Meds/Results Medications: Active Medications Generic Name Dose Route Start Last Admin Trade Name Freq PRN Reason Stop Dose Admin Albuterol 2 puff 05/13/22
--- NOTE | 2022-05-14 08:14 | WPDUROPN2 ---
Progress Note: A&P Assessment and Plan (1) Left ureteral calculus: Code(s): N20.1 - Calculus of ureter Status: Acute Assessment and Plan: Feeling better at this time. Would like a trial of stone passage. Recommend discharging home with pain meds, antibiotics for 5 days, as well as tamsulosin 0.4 mg daily. Follow-up in 1 week with myself or nurse practitioner Subjective Subjective Date/Time Seen: 05/14/22 08:14 Principal diagnosis: Left ureteral calculus Interval history: Jen is feeling better today. She is taking less pain meds. I have discussed the options of proceeding to the operating room or a trial of passage. She would like to try to pass the stone. As such can be discharged home with pain meds antibiotics and tamsulosin. Follow up in a week with myself or our nurse practitioner. Review of Systems Review of Systems: All systems reviewed & are unremarkable except as noted in HPI and below Exam Const: General: cooperative and comfortable Resp: Effort & Inspection: normal respiratory effort Cardio: Rate: regular rate Rhythm: regular rhythm Objective Data Vital Signs Vital Signs: Vital Signs - 24 hr 05/13/22 09:59 05/13/22 15:20 05/13/22 11:29 Temperature 36.8 C Pulse Rate 57 L 62 61 Respiratory Rate 18 13 13 Blood Pressure 128/92 H 99/61 L Pulse Oximetry 98 97 98 Oxygen Delivery 05/13/22 11:30 05/13/22 11:45 05/13/22 12:00 Temperature Pulse Rate 58 L 65 67 Respiratory Rate 12 21 H 15 Blood Pressure Pulse Oximetry 100 96 98 Oxygen Delivery 05/13/22 12:16 05/13/22 12:30 05/13/22 12:45 Temperature Pulse Rate 66 66 65 Respiratory Rate 14 15 15 Blood Pressure Pulse Oximetry 98 98 99 Oxygen Delivery 05/13/22 13:00 05/13/22 13:15 05/13/22 15:21 Temperature Pulse Rate 70 71 58 L Respiratory Rate 14 16 9 L Blood Pressure 99/61 L Pulse Oximetry 100 100 97 Oxygen Delivery 05/13/22 15:31 05/13/22 16:12 05/13/22 16:00 Temperature 36.2 C L Pulse Rate 72 59 L Respiratory Rate 17 17 Blood Pressure 97/65 L 105/65 Pulse Oximetry 98 100 Oxygen Delivery Room Air 05/13/22 21:58 05/13/22 20:00 05/14/22 06:00 Temperature 36.5 C 36.7 C Pulse Rate 59 L 64 Respiratory Rate 18 18 Blood Pressure 91/57 L 100/64 Pulse Oximetry 98 98 Oxygen Delivery Room Air Intake/Output Intake/Output: Intake & Output 05/11/22 05/12/22 05/13/22 05/14/22 23:59 23:59 23:59 23:59 Intake Total 2150 240 Output Total 200 Balance 1950 240 Meds/Results Medications: Active Medications Generic Name Dose Route Start Last Admin Trade Name Freq PRN Reason Stop Dose Admin Albuterol 2 puff 05/13/22 21:34 Albuterol Sulfate (*Sp) Aerosol 1 Puff INHALATION Q4H PRN Shortness Of Breath Sodium Chloride 1,000 mls @ 125 mls/hr 05/13/22 14:00 05/13/22 23:48 Normal Saline Iv IV CONT 125 mls/hr .Q8H ABDULAZIZ Administration Ceftriaxone Sodium/Dextrose 1 gm in 50 mls @ 100 mls/hr 05/14/22 14:00 Rocephin 1 Gm/D5w 50 Ml IVPB Q24H ABDULAZIZ Acetaminophen 1,000 mg in 100 mls @ 400 mls/hr 05/13/22 16:47 05/13/22 17:46 Ofirmev 1,000 Mg Ivpb IVPB 05/14/22 16:46 Infused Q6H PRN Infusion Pain Rated 4-6 Ketorolac Tromethamine 15 mg 05/13/22 21:44 05/14/22 03:49 Ketorolac 15 Mg/Ml Vial (*Bkc) IV PUSH 15 mg Q6H PRN Administration Pain Rated 4-6 Lorazepam 0.5 mg 05/13/22 21:42 05/14/22 04:22 Lorazepam Inj (*Crx) 2 Mg/Ml Vial IV PUSH 0.5 mg Q6H PRN Administration Anxiety Ondansetron HCl 4 mg 05/13/22 21:27 Ondansetron Inj 4 Mg/2 Ml Vial IV PUSH Q4H PRN Nausea And Vomiting Pantoprazole Sodium 40 mg 05/14/22 09:00 Pantoprazole Sodium Iv 40 Mg Vial [facility] [place] [facility] Results: ITS Impressions Abdomen/Pelvis CT 05/13/22 09:40 IMPRESSION: 1. Bilateral nephrolithiasis with obstructing 3 mm left ureteropelvic junction stone wi
[2022-05-14] MEDS: PANTOPRAZOLE SODIUM IV 40 MG VIAL IV PUSH (08:42)
[2022-05-14] MEDS: SODIUM CHLORIDE 0.9% IV 1,000 ML 125 ML IV CONT (08:44)
--- NOTE | 2022-05-14 10:43 | PM.DS ---
DS: Admitting Diagnosis Discharge Date 05/14/2022 1059 Admitting Diagnosis left ureteral calculus acute UTI COVID19 positive Fatty liver disease, chronic DS: Discharge Diagnosis Discharge Diagnosis (1) Left ureteral calculus: Code(s): N20.1 - Calculus of ureter Status: Acute (2) UTI (urinary tract infection): Code(s): N39.0 - Urinary tract infection, site not specified Status: Acute (3) Anxiety and depression: Code(s): F41.9 - Anxiety disorder, unspecified; F32.A - Depression, unspecified Status: Acute (4) COVID: Code(s): U07.1 - COVID-19 Status: Acute (5) Fatty liver: Code(s): K76.0 - Fatty (change of) liver, not elsewhere classified Status: Chronic DS: Summary Hospital Course Reason for hospitalization: Abdominal pain Hospital Course: Jen Preston is a 31-year-old female patient with a history kidney stones that did not require intervention.? She presented to the emergency room with c/o left flank pain.? She reported driving down the road on the day of admission when she developed a sharp pain to the left flank area.? She became nauseated and had several episodes of emesis.? She felt like she needed to urinate but was only dribbling a little.? She has not had any problems with her bowel movements.? The patient denied fever or chills.? CT of the abdomen showed bilateral nephrolithiasis with obstructing 3 mm left ureteropelvic junction stone with mild left hydronephrosis.? Abdominal x-ray shows 3 mm left ureteropelvic junction stone.? Urology was consulted.?UA showed cloudy urine, 3+ blood, 1+ leukocytes, >75 RBC, 16-20 WBC, trace bacteria and few epi cells. She was started on Rocephin and IV fluids.? She was given morphine, ketorolac, Zofran, and fentanyl in the emergency room with some relief. The patient was admitted to the medical floor and continued on IV Rocephin 1 gram Q24 hours, IV fluids, IV antiemetics, IV toradol PRN and PO extra-strength acetaminophen PRN. Urology was consulted to assist with management and posible ureteral stenting. Her symptoms improved significantly on IV antibiotic therapy. She remained hemodynamically stable. Urine was strained, however, no stone had been noted. Ureteral stenting was not pursued as she had improvement in symptoms with conservative intervention. She was transitioned to oral cefdinir 300 mg PO BID x5 days and started on tamsulosin 0.4 mg by mouth daily for assistance with stone passage. She was discharged home in stable condition with Urology follow up in 1 week. Urine culture was pending at the time of discharge, however, the patient improved clinically on 3rd generation cephalosporin therapy. LFTs were noted to be mildly elevated, however, this was at baseline with prior levels. Status at Discharge Cognitive/behavioral status at discharge: Alert and oriented x4, pleasant. Functional status at discharge: independent ambulation Overall status at discharge: patient is progressing back to baseline Time Spent with Patient Time attestation: Total time spent providing and/or coordinating discharge services: Time spent: Greater than 30 minutes Exam Narrative: General: Well-nourished, chronically ill-appearing older adult female, No acute distress. Neuro: awake, alert and oriented x4, speech clear, no focal neuro deficits noted HEENT: normocephalic, atraumatic, PERRL, EOMI, sclerae anicteric, mucous membranes moist. Neck: Supple. Chest: RR even and unlabored. Lung sounds clear to auscultation bilaterally without wheezes, rhonchi or rales, nonlabored breathing Heart: regular rate, regular rhythm with S1-S2. No murmurs, gallops or rubs. Abdomen: soft, obese, nondistended, normoactive bowel sounds, nontender to palpation. No guarding, suprapubic or CVA tenderness. Extremities: Moves all extremities equally and with full strength. No edema, erythema, or tenderness to palpation. Radial and dorsalis pedis pulses palpa
== END 2022-05-14 11:20 | disposition home or self-care (01) ==
LOC: ANHED 07:50 → ANH3MEDSUR 15:19
PROVIDERS: Nurse Practitioner; Admitting Provider Internal Medicine; Emergency Provider Emergency Medicine; Visit Provider Internal Medicine
DX: N13.2 Hydronephrosis with renal and ureteral calculous obstruction (principal); N39.0 Urinary tract infection, site not specified; F41.9 Anxiety disorder, unspecified; U07.1 COVID-19; K76.0 Fatty (change of) liver, not elsewhere classified; R11.2 Nausea with vomiting, unspecified; F32.A Depression, unspecified; Z90.49 Acquired absence of other specified parts of digestive tract; F12.90 Cannabis use, unspecified, uncomplicated; Z87.442 Personal history of urinary calculi; Z79.1 Long term (current) use of non-steroidal anti-inflammatories (NSAID); Z79.52 Long term (current) use of systemic steroids; Z79.899 Other long term (current) drug therapy; Z84.89 Family history of other specified conditions
CPT/HCPCS: 36415; 74018; 74176; 80053; 81001; 81025; 83605; 83735; 85025; 87040; 87086; 96361; 96365; 96374; 96375; 96376; 99285; C9113; C9803; G0378; G0379; J0131; J0696; J1885; J2060; J2270; J2405; J3010; J7030; U0003; U0005

== ENCOUNTER 2022-05-30 11:34 | Outpatient (CLI) | payer BC, OTHER, SELFPAY ==
--- NOTE | ~2022-05-30 | XR_ITS ---
EXAMINATION: XR abdomen/kub 1V DATE: 05/30/2022 11:58 INDICATION: Left ureteral stone. TECHNIQUE: A supine view of the abdomen on 2 radiographs was obtained. COMPARISON: CT abdomen and pelvis 05/13/2022 FINDINGS: There are no dilated loops of bowel. Surgical clips in the right upper quadrant are likely from cholecystectomy. There is no visible urolithiasis. IMPRESSION: 1. No visible urolithiasis. Reviewed, dictated and finalized at location A. IMPRESSION: 1. No visible urolithiasis.
== END 2022-05-30 11:35 | disposition home or self-care (01) ==
PROVIDERS: Visit Provider Urology
DX: N20.1 Calculus of ureter (principal)
CPT/HCPCS: 74018

== ENCOUNTER 2022-07-02 09:40 | Outpatient (CLI) | payer BC, MEDICAID, SELFPAY ==
--- NOTE | ~2022-07-02 | CT_ITS ---
EXAMINATION: CT abdomen pelvis wo con DATE: 07/02/2022 10:21 INDICATION: Left ureteral stone TECHNIQUE: Computed tomography (CT) of the abdomen and pelvis was performed without intravenous contr ast. Automated exposure control and iterative reconstruction technique were employed. Exam dose: 323 .75 mGy-cm total exam DLP. COMPARISON: 05/30/2022 KUB 05/13/2022 KUB 05/13/[address] abdomen pelvis FINDINGS: The lung bases are clear. Normal heart size. No pericardial or pleural effusion. Status post cholecystectomy. No bile duct or pancreatic duct dilatation. No hepatic, pancreatic or sp lenic space-occupying mass lesion. Normal morphology of the adrenal glands. Previously reported 3 mm left ureteropelvic junction stone of 05/13/2022 is no longer present, with i nterval resolution of left hydronephrosis. No definite urinary tract calculus is evident on this nonc ontrast examination. Uterus, adnexal areas and urinary bladder are unremarkable. Normal caliber of the abdominal aorta. No intraperitoneal or retroperitoneal or pelvic mass lesion or adenopathy or ascites. Diverticulosis of the colon; no CT evidence of diverticulitis. No bowel obstruction, wall thickening, pneumatosis or intraperitoneal free air. 2.3 x 3.2 x 2.4 cm right periumbilical fat-containing hernia. Included skeletal structures are unremarkable. IMPRESSION: Resolution of 3 mm left urinary tract calculus and left hydronephrosis; no urinary tract calculi are identified on this examination Status post cholecystectomy Diverticulosis of the colon; no CT evidence of diverticulitis Reviewed, dictated and finalized at [facility]. Reviewed, dictated and finalized at location B. [employer] IMPRESSION: Resolution of 3 mm left urinary tract calculus and left hydronephr osis; no urinary tract calculi are identified on this examination Status post cholecystectomy Diverticulosis of the colon; no CT evidence of diverticulitis
== END 2022-07-02 09:41 | disposition home or self-care (01) ==
PROVIDERS: Visit Provider Urology
DX: N20.1 Calculus of ureter (principal); Z90.49 Acquired absence of other specified parts of digestive tract; K57.30 Diverticulosis of large intestine without perforation or abscess without bleeding
CPT/HCPCS: 74176

== ENCOUNTER 2022-09-11 09:39 | Outpatient (CLI) | payer BC, MEDICAID, SELFPAY ==
[2022-09-11 10:50] LABS: Anion Gap 6 mmol/L (8-16); Blood Urea Nitrogen 11 mg/dL (7-17); Calcium 8.8 mg/dL (8.4-10.2); Carbon Dioxide 21 mmol/L (22-30); Chloride 108 mmol/L (98-107); Estimated Glomerular Filt Rate > 60; Glucose 116 mg/dL (65-110); Potassium 4.2 mmol/L (3.4-5.0); Sodium 135 mmol/L (137-145)
== END 2022-09-11 09:40 | disposition home or self-care (01) ==
LOC: ANHLAB 09:41
PROVIDERS: Visit Provider Anesthesiology
DX: K76.0 Fatty (change of) liver, not elsewhere classified (principal)
CPT/HCPCS: 36415; 80048

== ENCOUNTER 2022-09-25 00:35 | Day surgery (SDC) | payer MEDICAID, SELFPAY ==
[2022-09-10 10:22] VITALS: BMI 36.3
--- NOTE | 2022-09-10 10:31 | PC.NURSE ---
Report to the Outpatient Waiting Room, entrance under the green pavilion located off [facility], at time 10:00am on date 09-25-22. Planned Procedure Time: 12:00pm. Time changes happen often and if your time is changed the preop area will call you the afternoon before. - You and your visitor will be asked to self-screen and do not enter if you have any COVID symptoms. - Only one visitor is requested with a max of two and NO children visitors are allowed at this time. - The patient visitor may be requested to leave or wait in car when not with patient due to distancing restrictions. - A mask is optional within the hospital at this time. Patients may have clear liquids (water, carbonated beverages, clear teas, apple juice) until 3 hours prior to surgery (09:00am) with a maximum of 20 ounces. - No food from midnight until time of surgery Take the following medications with a SIP of water the morning of surgery: n/a DO NOT STOP ANY OF YOUR OTHER PRESCRIPTION MEDICATIONS PRIOR TO SURGERY ?EXCEPT THE FOLLOWING Medications to discontinue per physician n/a Please no make-up, nail khmer, hairspray, perfume, deodorant, or body powder the day of surgery. No jewelry (including any body piercings) or valuables the day of surgery, leave them at home. Please take a shower or bath the night before, or the morning of, surgery with an antibacterial soap. Wear comfortable, loose fitting clothing. - Jewelry must be removed prior to entering the operating room. Rings and piercings that are not removed may be cut off. - The hospital will not accept responsibility for valuables. - Please leave all valuables, including medications, at home the day of surgery. If you are going home after surgery, a licensed cryogenic transport driver must drive you home. - NO public transportation without another adult if you receive anesthesia. - We recommend that an adult stay with you for 24 hours following discharge. - We also recommend that you do not drive, make important decision, drink alcoholic beverages, or take any drugs that were not prescribed by your health care provider for at least 24 hours after your discharge time. Follow any additional instructions given to you from your surgeon. If you or anyone in your household have experienced Covid symptoms in the past week, please notify your surgeon or the nurse liaison at the phone number below for possible testing. Telephone instructions given to patient and asked if any additional questions and then verbalized understanding. Patient advised to call surgeon office or pre surgery nurse liaison [phone] if any additional questions.
--- NOTE | 2022-09-23 16:03 | PM.SD2 ---
Same Day Admit/Disch: HPI History of Present Illness Narrative: Jen Preston is a 32 year old female who has been having an increasingly larger and more painful bulge in the umbilical area. She has a history of a previous appendectomy and a large indented lower abdominal midline scar extending up to the umbilicus. CT scan showed an umbilical hernia. Her exam confirmed an umbilical hernia. She also has some left-sided abdominal pain when the hernia is bulging. She was seen in the office and is taken to surgery at this time for robotic laparoscopic repair of this incisional hernia. Hernia size by the CT scan was 3.2 cm. [facility] Past Medical History Medical History Anxiety and depression Asthma Fatty liver High cholesterol History of esophageal dilatation Surgical History Surgical History History of appendectomy History of esophagogastroduodenoscopy Hx of cholecystectomy Family History Family History Grandparent Diabetes mellitus Pancreatic cancer Mother Graves disease Hyperthyroidism Shar's disease Father Gallbladder disease Social History Social History Social History: the patient uses marijuana for her anxiety. She has 2 children and is . 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 The patient used to smoke cigarettes. She quit drinking when she found out she has a fatty liver. She does not have a durable power employee benefits attorney for healthcare. Code status full code Smoking packs per day: 0.05 Smoking cigarettes per day: 1.0 Years smoked: 2 Smoking pack-years: 0.10 Smoking status: Never smoker Tobacco type: cigarettes Second hand tobacco smoke exposure: Yes (parent smokes outside) Alcohol intake: former Alcohol use details: quit drinking in January due to liver issues. used to have 2-3 beers a week Substance use: current Substance use type: marijuana Last use: 09-10-22 Living arrangements: with family Spiritual care concerns: No Same Day Admit/Disch: Med Pre-admit Medications Home Medications Medication Instructions Recorded Confirmed Type albuterol sulfate 90 mcg/actuation 2 puff inhalation Q4H PRN 04/21/21 09/10/22 History aerosol inhaler Shortness Of Breath epinephrine 0.3 mg/0.3 mL 0.3 ml subcut DAILY PRN Allergic 04/21/21 09/10/22 History injection, auto-injector Reaction medroxyprogesterone 150 mg/mL 150 mg IM Q3M 04/21/21 09/10/22 History intramuscular suspension omeprazole 20 mg capsule,delayed 20 mg PO DAILY PRN Heartburn 09/10/22 09/10/22 History release ketorolac 10 mg tablet 10 mg PO Q6H 4 days #16 tabs 09/25/22 Rx oxycodone-acetaminophen 5 mg-325 1 - 2 tablet PO Q6H PRN pain #20 09/25/22 Rx mg tablet (Percocet) tabs Exam Const: General: comfortable, no acute distress, alert and awake HENMT: Head: normocephalic and atraumatic Mouth: Yes Normal oral and palatal mucosa present Eyes: Conjunctivae: conjunctivae normal Pupils: Equal, round and reactive pupils present EOM: EOMs intact bilaterally Neck: Neck: normal visual inspection, no lymphadenopathy and nontender Resp: Effort & Inspection: normal respiratory effort Auscultation: clear to auscultation bilaterally Cardio: Rate: regular rate Rhythm: regular rhythm Heart sounds: no gallops, no murmurs and no rubs GI: Inspection: non-distended, obesity, scar (Indented, wide lower abdominal midline scar ) and visible herniation (Periumbilical) GI Palp: Yes Soft to palpation, No Tenderness to palpation present (GI), No Hepatomegaly present, No Splenomegaly present and Yes Hernia present (Periumbilical, reducible) Auscultation: normal bowel sounds Skin: Lesions: no lesions Rashes: no rashes Neuro: General: no focal motor deficits and CN's II-XI intact
[2022-09-25] VITALS (10 sets, daily range): BP systolic 97–121; BP diastolic 55–76; PULSE 76–97; RESP 12–24; TEMP 36.7–37.3; O2SAT 94–100
--- NOTE | 2022-09-25 11:09 | WPDANESEPPF ---
Anes - Initial Pre Proc Eval Procedure: Operation Date: 09/25/22 12:00 Proposed Procedures p Robotic Assisted Laparoscopic Incisional Hernia Repair with Mesh - Tyshawn Woody MD Date/Time: 09/25/22 11:09 Surgeon: Tyshawn Woody MD Pre Op Diagnosis: incisional hernia 3cm Patient Data Age: 32 Gender: F Height: 1.57 m Weight: 90 kg Allergies Allergy/AdvReac Type Severity Reaction Status Date / Time shellfish derived Allergy Intermediate Swelling Verified 09/10/22 10:18 Home Medications Medication Instructions Recorded Confirmed Type albuterol sulfate 90 mcg/actuation 2 puff inhalation Q4H PRN 04/21/21 09/10/22 History aerosol inhaler Shortness Of Breath epinephrine 0.3 mg/0.3 mL 0.3 ml subcut DAILY PRN Allergic 04/21/21 09/10/22 History injection, auto-injector Reaction medroxyprogesterone 150 mg/mL 150 mg IM Q3M 04/21/21 09/10/22 History intramuscular suspension omeprazole 20 mg capsule,delayed 20 mg PO DAILY PRN Heartburn 09/10/22 09/10/22 History release Patient hx anesthesia problems: none Family hx anesthesia problems: none Results Review: All pre-operative results and documents have been reviewed as part of the pre-operative evaluation. [facility] Past Medical History Medical History Anxiety and depression Asthma Fatty liver High cholesterol History of esophageal dilatation Surgical History Surgical History History of appendectomy History of esophagogastroduodenoscopy Hx of cholecystectomy Family History Family History Grandparent Diabetes mellitus Pancreatic cancer Mother Graves disease Hyperthyroidism Shar's disease Father Gallbladder disease Social History Social History Social History: the patient uses marijuana for her anxiety. She has 2 children and is . 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 The patient used to smoke cigarettes. She quit drinking when she found out she has a fatty liver. She does not have a durable power finance attorney for healthcare. Code status full code Smoking packs per day: 0.05 Smoking cigarettes per day: 1.0 Years smoked: 2 Smoking pack-years: 0.10 Smoking status: Never smoker Tobacco type: cigarettes Second hand tobacco smoke exposure: Yes (parent smokes outside) Alcohol intake: former Alcohol use details: quit drinking in January due to liver issues. used to have 2-3 beers a week Substance use: current Substance use type: marijuana Last use: 09-10-22 Living arrangements: with family Spiritual care concerns: No Anes - Eval Final PreProcedure Day of Procedure 09/25/22 11:09 Patient weight: obese Heart: regular rate and rhythm Lungs: clear to auscultation Airway: Mallampati scale class II Last oral intake: >/= 8 hours ASA classification: II Emergent: no Anesthetic plan: proceed Anesthesia type and monitoring: general ETT and standard monitoring Results Review: All pre-operative results and documents have been reviewed as part of the pre-operative evaluation. Informed Consent: The patient's anesthetic plan and its attendant risks and benefits were discussed with the patient/family/POA. Questions were solicited and answers provided to the satisfaction of the patient/family/POA.
[2022-09-25] MEDS: ACETAMINOPHEN 500 MG TABLET 1000 MG PO (11:30)
[2022-09-25] MEDS: LACTATED RINGERS 1,000 ML 30 ML IV CONT ×2 (11:30→14:36)
[2022-09-25] MEDS: KETOROLAC 15 MG/ML VIAL (*BKC) IV PUSH (11:30)
--- NOTE | 2022-09-25 11:55 | WPDHPUPDATE1 ---
History and Physical Update Update Date/Time: 09/25/22 11:55 History and Physical has been reviewed, including an updated exam of the patient. There are NO changes in the patient's condition. Risks, benefits, and alternatives have been discussed and questions answered. Patient agrees to proceed with procedure.
[2022-09-25] MEDS: ceFAZolin 2 GM/D5W 50 ML 2 GM/50 ML BAG IVPB (12:13)
[2022-09-25] MEDS: BUPIVACAINE/EPINEPHRINE 0.5% 10 ML VIAL 30 ML INFILTRATE (13:03)
[2022-09-25] MEDS: fentaNYL CITRATE INJ (*CRX) 100 MCG/2 ML VIAL 25 MCG IV PUSH ×6 (14:57→15:12)
--- NOTE | 2022-09-25 15:07 | W.PM.PROC2 ---
Procedure Note - Detailed Date of Procedure 09/25/22 Pre-op Diagnosis incisional hernia 3cm Post-op Diagnosis Other ( incisional hernias, 5 cm) Procedure Performed robotic laparoscopic repair periumbilical incisional hernias, 5 cm, with Ventralight ST underlay mesh Surgeon Tyshawn Woody MD Cardiologist David FOX Anesthesia General and Local ( 0.5% Marcaine with epinephrine) Indications patient has had previous active mid ectomy and has a heavily scarred indented lower abdominal midline incision that goes up to the umbilicus. She has a painful hernia at the area of the umbilicus. The hernia was palpable and was also seen on CT scan. She is taken to surgery now for robotic assisted laparoscopic repair of incisional hernia in the periumbilical area with mesh Findings the umbilical hernia defect was 3.2 cm but there were 5 other defects between 0.5 cm and a full cm in size. Two of these were cephalad to the umbilical hernia. Three were caudal to the umbilical incisional hernia. In total there was about 5 cm worth of abdominal wall defects that were repaired with the surgery. The smaller defects appeared to be areas where suture had pulled through causing a fascial defect from the previous repair. Description of Procedure Patient was taken to surgery and induced into general anesthesia. The abdomen is prepped and draped. Local was infiltrated just below the left costal margin. A small incision was made in the varies needle was introduced. Insufflation was carried out till the abdomen was distended. We then passed an Qui.lt optical 5 mm trocar into the abdominal cavity. Review with the camera showed good intraperitoneal location. It was noted there were quite a few midline abdominal adhesions of primarily omentum. we then placed the left lateral mid abdominal 8 mm robotic trocar under direct visualization. A left lower quadrant 8 mm robotic trocar was placed in similar fashion. We then moved the camera to the left lower quadrant and exchanged the 5 mm trocar for another 8 mm robotic trocar. The robot was then brought into the field. The camera was docked and the area of the hernias was targeted. We then placed the robotic instruments. The surgeon broke scrub and went to the robotic console. Adhesiolysis was carried out. Although there was some bowel near the incisional hernia, this was able to be taken down without difficulty. The other adhesions were all omentum and were taken down from the anterior abdominal wall completely. We also reduced the chronically incarcerated properitoneal fat from the periumbilical incisional hernia. This was completely reduced. It was noted after we took down the adhesions that there were multiple small hernia defects as described above both above and below the main incisional hernia. The total amount of abdominal wall defects associated with this incisional hernia was 5 cm. Because we had a wider area to cover, I chose the 10 x [address] underlay mesh.The hernia defect was closed with 0 V lock suture. The mesh was then introduced and unrolled. I placed a suture of the previous V lock through the center of the mesh and secured it to the center of the area that I wished to cover with the mesh. Two 0 V lock suture was then introduced. Starting at the left lateral aspect of the mesh, running 2 0 V lock suture was used. This was continued circumferentially all around the mesh. A total of three 2 0 V lock suture were required. Mesh looked good and was well secured to the anterior abdominal wall. There was excellent overlap of mesh over all the defects. I then used another 0 V lock suture and ran this to secure the mesh to the abdominal wall midline throughout the length of the mesh from caudal to cranial aspect. This suture was then removed. The mesh appeared to be in very good position. We evacuated CO2 and undocked the robot. Skin wounds were closed with subcuticular 4-0 Monocryl skin padilla
[2022-09-25] MEDS: HYDROmorphone HCL INJ (*CRX) 1 MG/ML SYR 0.5 MG IV PUSH ×2 (15:22→15:32)
[2022-09-25] MEDS: oxyCODONE HCL (*CRX) 5 MG TAB IR PO (16:31)
== END 2022-09-25 17:14 | disposition home or self-care (01) ==
PROVIDERS: Visit Provider Surgery
PROC: (CPT 49593; principal; 2022-09-25 12:00)
DX: K43.2 Incisional hernia without obstruction or gangrene (principal); J45.909 Unspecified asthma, uncomplicated; E78.00 Pure hypercholesterolemia, unspecified; K76.0 Fatty (change of) liver, not elsewhere classified; F41.8 Other specified anxiety disorders; Z79.51 Long term (current) use of inhaled steroids; F12.90 Cannabis use, unspecified, uncomplicated; E66.9 Obesity, unspecified; Z68.36 Body mass index [BMI] 36.0-36.9, adult
CPT/HCPCS: 49593; 36415; 86850; 86900; 86901; A9270; C1781; J0690; J1100; J1170; J1885; J2250; J2704; J3010; J7030; J7120

== ENCOUNTER 2022-09-27 10:31 | Emergency (ER) | payer MEDICAID, SELFPAY ==
[2022-09-27] VITALS (12 sets, daily range): BP systolic 102–118; BP diastolic 76–83; PULSE 74–81; RESP 16; TEMP 36.4; O2SAT 98–99
--- NOTE | 2022-09-27 11:00 | ED.WOUNDLAC ---
HPI - Wound/Laceration General Chief Complaint: Wound/Laceration Stated Complaint: Bleeding from surgical incision, increasing pain Time Seen by Provider: 09/27/22 10:38 Source: patient Mode of arrival: ambulatory Limitations: no limitations History of Present Illness HPI narrative: This is a 32 year old female that presents to the ER for incision site bleeding after recent procedure. Reports she had an umbilical hernia repair [address] Woody. Reports her incision site in the left lower abdomen started to open up last night. She has had some bleeding and pain to the area. Patient has not had a bowel movement, but has passed gas. Denies fevers, erythema or vomiting. Related Data Home Medications Medication Instructions Recorded Confirmed albuterol sulfate 90 mcg/actuation 2 puff inhalation Q4H PRN 04/21/21 09/10/22 aerosol inhaler Shortness Of Breath epinephrine 0.3 mg/0.3 mL 0.3 ml subcut DAILY PRN Allergic 04/21/21 09/10/22 injection, auto-injector Reaction medroxyprogesterone 150 mg/mL 150 mg IM Q3M 04/21/21 09/10/22 intramuscular suspension omeprazole 20 mg capsule,delayed 20 mg PO DAILY PRN Heartburn 09/10/22 09/10/22 release Allergies Allergy/AdvReac Type Severity Reaction Status Date / Time shellfish derived Allergy Intermediate Swelling Verified 09/27/22 10:43 Review of Systems Review of Systems: CONSTITUTIONAL: Denies fever GASTROINTESTINAL: Denies nausea, vomiting SKIN: Denies erythema or abnormal drainage All systems reviewed & are unremarkable except as noted in HPI and below PMFSH Past Medical History Medical History Anxiety and depression Asthma Fatty liver High cholesterol History of esophageal dilatation Surgical History Surgical History History of appendectomy History of esophagogastroduodenoscopy Hx of cholecystectomy Family History Family History Grandparent Diabetes mellitus Pancreatic cancer Mother Graves disease Hyperthyroidism Shar's disease Father Gallbladder disease Social History Social History Social History: the patient uses marijuana for her anxiety. She has 2 children and is . 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 The patient used to smoke cigarettes. She quit drinking when she found out she has a fatty liver. She does not have a durable power metal casting trades worker for healthcare. Code status full code Smoking packs per day: 0.05 Smoking cigarettes per day: 1.0 Years smoked: 2 Smoking pack-years: 0.10 Smoking status: Never smoker Tobacco type: cigarettes Second hand tobacco smoke exposure: Yes (parent smokes outside) Alcohol intake: former Alcohol use details: quit drinking in January due to liver issues. used to have 2-3 beers a week Substance use: current Substance use type: marijuana Last use: 09-10-22 Living arrangements: with family Spiritual care concerns: No Exam Narrative: GENERAL: Well-appearing, well-nourished, and in no acute distress. HEAD: Normocephalic, atraumatic. EYES: EOMI. CHEST: No respiratory distress. HEART: Regular rate ABDOMEN: Soft, nontender, nondistended, normal active bowel sounds. Incision sites without surrounding erythema or abnormal drainage. Incision site to the left lower abdomen with mild bruising, there is a small (1cm) area that has started to open superficially EXTREMITIES: Normal range of motion. No edema. SKIN: Warm, dry, no rash. NEURO: No focal deficits. Alert and oriented x3. PSYCH: Normal mood and affect Course Course Emergency Course: Patient updated on plan of care Consultations Consultation #1: Spoke with Dr. Woody about patient and work-up. Would like patient to clean the area with soap and water, apply silver gel and gau
[2022-09-27] MEDS: oxyCODONE/ACETAMINOPHEN (*CRX) 5-325 MG TABLET 1 TABLET PO (12:32)
[2022-09-27] MEDS: SILVERGEL (ELTA) 45 ML 1 APPLIC TOPICAL (12:32)
== END 2022-09-27 13:09 | disposition home or self-care (01) ==
PROVIDERS: Emergency Provider Physician Assistant
DX: T81.31XA Disruption of external operation (surgical) wound, not elsewhere classified, initial encounter (principal); J45.909 Unspecified asthma, uncomplicated; E78.00 Pure hypercholesterolemia, unspecified
CPT/HCPCS: 99283; A9270

== ENCOUNTER 2023-07-01 13:16 | Outpatient (CLI) | payer OTHER, SELFPAY ==
--- NOTE | 2023-07-01 16:23 | WPDPFTINT ---
PFT Procedure Performed PFT Procedure Performed Plethysmography (Lung Vol) Diffusing Cap (DLCO) Flow Vol Loop Spirometry w/o Bronchodil PFT Interpretation This is a pulmonary function test with spirometry, plethysmography and diffusing capacity. The test was performed and results interpreted in accordance with the 2019 and 2005 ATS/ERS Task Force guidelines respectively using the Global Lung Function Initiative-2012 reference equations. Patient demonstrated good effort and cooperation. Reproducibility criteria were met. The quality of the spirometry maneuver was Grade A. Findings: Spirometry: There is decreased maximal expiratory flow at all lung volumes with concave expiratory flow tracing. The contour the inspiratory flow tracing is normal. The FVC is 3.59 L, 102% predicted. The FEV1 is 2.16 L, 73% predicted. The FEV1: FVC ratio 60%. Plethysmography: The total lung capacity is 5.59 L, 118% predicted. The functional residual capacity is 2.47 L, 96% predicted. The residual volume is 1.98 L, 153% predicted. Diffusing capacity: The diffusing capacity unadjusted for hemoglobin and carboxyhemoglobin is 24.2, 101% predicted. The diffusing capacity adjusted for alveolar volume is 5.08, 102% predicted. Impression: There is a mild obstructive abnormality. The lung volumes are normal. The diffusing capacity is normal. There are no prior studies for comparison
== END 2023-07-01 13:17 | disposition home or self-care (01) ==
PROVIDERS: PCP Nurse Practitioner Family; Visit Provider Internal Medicine
DX: J45.909 Unspecified asthma, uncomplicated (principal); R94.2 Abnormal results of pulmonary function studies
CPT/HCPCS: 94375; 94726; 94729

== ENCOUNTER 2023-07-28 08:19 | Outpatient (CLI) | payer OTHER, SELFPAY ==
--- NOTE | 2023-08-21 17:05 | WPDSLEEPSTUD ---
Sleep Study Date of Study: 07/28/23 Ordering Provider: Raffy Alarcon MD Interpreting Physician: Chanel Richards MD Sleep Study Type: Split Polysomnogram Height: 1.57 m Weight: 89.811 kg Body Mass Index: 36.2 Neck Circumference (inches): 17 [place]: 14 Reason for Sleep Study Hypersomnolence Sleep History Jen Preston is a 33-year-old woman with excessive daytime sleepiness. she initially was seeking help for her asthma and in the process was evaluated for sleep disorders. She has difficulty staying asleep and breathing while she sleeps. She snores loudly. She has never been tested.She awakens from sleep short of breath. She frequently wakes at night with heartburn, belching or coughing.??She frequently snores, constantly snores loudly enough that others complain. She occasionally has trouble sleeping when she has a cold. She constantly wakes up gasping for breath during the night. She frequently has breathing problems at night. She rarely sweats excessively at night. She occasionally notices her heart pounding or beating irregularly during the night. She occasionally falls asleep during the day. She rarely falls asleep involuntarily, never falls asleep while driving. She constantly experiences loss of muscle tone with strong emotion. She rarely feels paralyzed on waking or falling asleep. She frequently experiences vivid dreams upon waking or falling asleep. She occasionally feels afraid of going to sleep. She constantly has nightmares. She frequently recalls her dreams. She frequently has thoughts racing through her mind. She frequently feels sad or depressed. She frequently feels anxiety. She occasionally notices parts of her body jerk. She rarely kicks during the night. She frequently feels crawling or aching feelings in her legs. She occasionally feels leg pain at night. She frequently has morning jaw pain, although she rarely grinds her teeth at night. She occasionally feels bothered by pain during the day, is rarely awakened by pain during the night. She frequently wakes up feeling stiff in the morning, frequently wakes feeling sore or achy in the morning. She constant awakens with pain in her neck, spine, or joints. She has dizziness, fatigue, insomnia, headaches and she takes antacids regularly. She has bipolar disorder. She reports an 8 lb weight gain in the last 12 months. She has seasonal allergies. Normal bedtime is , falling asleep Between 10:00 p.m. and 11:00 p.m., and the length of time to fall asleep depends on how she feels that day. She typically will wake between 3 and 4 times during the night. She may be able to return to sleep in 10 minutes but sometimes it may take up to 3 hours. While awake, she may go to the bathroom, used her inhaler if she is having trouble breathing, use her cellphone to scroll through Facebook or watch television. Her normal wake time is 5:00 a.m.. She keeps a similar schedule on weekends, bedtime is between 10:00 p.m. and 11:00 p.m., wake time is 7:00 a.m.. She estimates getting an average of 4 hours most nights but each night is different. She takes naps during the afternoon or evening. A short nap lasting 10-15 minutes may be refreshing. She is usually drowsy for an hour after an average night of sleep. She feels better in the afternoon compared to other times of day. Habits:??Tobacco: Former smoker, quit a year ago Caffeine: 4-5 servings daily. Alcohol: none Recreational substances: none PMFSH Past Medical History Medical History Anxiety and depression Asthma Bipolar 1 disorder Fatty liver Heartburn High cholesterol History of esophageal dilatation Surgical History Surgical History History of appendectomy History of esophagogastroduodenoscopy History of incisional hernia repair 09/25/22 robotic laparoscopic repair periumbilical incisional her
[2023-08-26 12:29] VITALS: BMI 36.2
== END 2023-07-29 07:00 | disposition home or self-care (01) ==
LOC: ANHCSM 08:23
PROVIDERS: PCP Nurse Practitioner Family; Visit Provider Internal Medicine Pulmonary Disease
DX: G47.33 Obstructive sleep apnea (adult) (pediatric) (principal)
CPT/HCPCS: 95811

== ENCOUNTER 2023-09-04 12:01 | Outpatient (CLI) | payer OTHER, SELFPAY ==
[2023-09-04 12:38] LABS: Iron 79 ug/dL (37-170)
[2023-09-04 12:47] LABS: Percent Iron Saturation 23 % (20-50)
== END 2023-09-04 12:02 | disposition home or self-care (01) ==
LOC: ANHLAB 12:03
PROVIDERS: PCP Nurse Practitioner Family; Visit Provider Internal Medicine Pulmonary Disease
DX: K76.0 Fatty (change of) liver, not elsewhere classified (principal)
CPT/HCPCS: 36415; 82728; 83540; 83550

== ENCOUNTER 2024-04-15 22:08 | Emergency (ER) | payer BC, OTHER, SELFPAY ==
[2024-04-15 22:12] VITALS: BP 115/78; PULSE 104; RESP 20; TEMP 35.9; O2SAT 100
[2024-04-15 22:37] LABS: Basophils Percent Auto 0.3 % (0.2-1.2); Eosinophils Absolute Auto 0.4 K/mm3 (0-0.3); Hemoglobin 14.8 g/dL (12.0-15.0); Immature Granulocyte Absolute 0.04 K/mm3 (0.00-0.031); Immature Granulocyte Percent A 0.4 % (0-0.5); Lymphocytes Absolute Auto 2.45 K/mm3 (0.9-3.2); Lymphocytes Percent Auto 26.8 % (18.3-44.2); Mean Corpuscular HGB Conc 33.6 g/dl (32-36); Mean Corpuscular Hemoglobin 31.2 pg (26-34); Mean Corpuscular Volume 92.6 fl (80-100); Mean Platelet Volume 11.1 fl (7.4-10.4); Monocytes Absolute Auto 0.8 K/mm3 (0.1-0.6); Monocytes Percent Auto 8.4 % (2.6-8.5); Neutrophils Absolute Auto 5.5 K/mm3 (1.3-6.7); Neutrophils Percent Auto 60.1 % (45.5-73.1); Platelet Count Result 253 k/mm3 (150-375); Red Blood Count 4.75 M/mm3 (4.2-5.4); White Blood Count 9.1 K/mm3 (4.5-10.0)
[2024-04-15] MEDS: ONDANSETRON INJ 4 MG/2 ML VIAL IV PUSH (23:02)
[2024-04-15] MEDS: PANTOPRAZOLE SODIUM IV 40 MG VIAL IV PUSH (23:02)
--- NOTE | 2024-04-15 23:06 | ED.NAVMDI ---
HPI - Nausea/Vomiting/Diarrhea General Chief complaint: Nausea/Vomiting/Diarrhea Stated complaint: nausea, cold sweats, feverish Time Seen by Provider: 04/15/24 22:25 History of Present Illness HPI Narrative: Patient states last few days she has been having nausea, vomiting, diarrhea, some epigastric discomfort. Related Data Home Medications Medication Instructions Recorded Confirmed epinephrine 0.3 mg/0.3 mL 0.3 ml subcut DAILY PRN Allergic 04/21/21 07/21/23 injection, auto-injector Reaction omeprazole 20 mg capsule,delayed 20 mg PO DAILY PRN Heartburn 09/10/22 07/21/23 release cholecalciferol (vitamin D3) 25 25 mcg PO WEEKLY 09/07/23 mcg (1,000 unit) tablet folic acid 400 mcg tablet 0.4 mg PO DAILY 09/07/23 hydroxyzine pamoate 25 mg capsule 25 mg PO QHS 09/07/23 lurasidone 40 mg tablet 40 mg PO DAILY 09/07/23 prazosin 2 mg capsule 2 mg PO QHS 09/07/23 Allergies Allergy/AdvReac Type Severity Reaction Status Date / Time shellfish derived Allergy Intermediate Swelling Verified 09/07/23 09:03 Review of Systems Review of Systems: All systems reviewed & are unremarkable except as noted in HPI and below PMFSH Past Medical History Medical History Anxiety and depression Asthma Bipolar 1 disorder Fatty liver Heartburn High cholesterol History of esophageal dilatation Surgical History Surgical History History of appendectomy History of esophagogastroduodenoscopy History of incisional hernia repair 09/25/22 robotic laparoscopic repair periumbilical incisional hernias, 5 cm, with Ventralight ST underlay mesh Hx of cholecystectomy Family History Family History Grandparent Diabetes mellitus Pancreatic cancer Mother Graves disease Hyperthyroidism Shar's disease Father Gallbladder disease Social History Social History Social History: the patient uses marijuana for her anxiety. She has 2 children and is . 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 The patient used to smoke cigarettes. She quit drinking when she found out she has a fatty liver. She does not have a durable power commonwealth attorney for healthcare. Code status full code Smoking packs per day: 0.05 Smoking cigarettes per day: 1.0 Years smoked: 2 Smoking pack-years: 0.10 Smoking status: Never smoker Tobacco type: cigarettes Second hand tobacco smoke exposure: Yes (parent smokes outside) Alcohol intake: former Alcohol use details: quit drinking in January due to liver issues. used to have 2-3 beers a week Substance use: current Substance use type: marijuana Last use: 09-10-22 Living arrangements: with family Spiritual care concerns: No Exam Narrative: EXAMINATION OF ORGAN SYSTEMS/BODY AREAS: Constitutional: Vital signs per nursing GENERAL:[No acute distress, non-toxic appearing.] HEAD: Normal with no signs of head trauma. EYES: EOMI, conjunctiva normal ENT: Hearing grossly intact LUNGS: Nonlabored breathing. HEART: [Regular rate and rhythm] ABD: [Soft], No palpable mass, very minimal tenderness to palpation epigastric abdomen EXT: Normal range of motion SKIN: [No rashes or lesions.] NEURO: [Alert and oriented x 3. No gross focal sensory or strength deficits.] PSYCH: Normal affect Course Vital Signs Vital signs: Vital Signs Temperature 96.7 F L 04/15/24 22:12 Pulse Rate 104 H 04/15/24 22:12 Respiratory Rate 04/15/24 22:12 Blood Pressure 115/78 04/15/24 22:12 Pulse Oximetry 100 04/15/24 22:12 Temperature 96.7 F L 04/15/24 22:12 Pulse Rate 104 H 04/15/24 22:12 Respiratory Rate 04/15/24 22:12 Blood Pressure 115/78 04/15/24 22:12 Pulse Oximetry 100 04/15/24 22:12 MDM - Nausea/Vomiting/Diarrhea
[2024-04-15 23:13] LABS: Influenza A QL RT-PCR Negative (Negative); Influenza B QL RT-PCR Negative (Negative); RSV RNA, RT-PCR Negative (Negative); SARS-CoV-2 RNA PCR Negative (Negative)
[2024-04-15 23:20] LABS: Alanine Aminotransferase 71 U/L (6-35); Albumin Level 4.5 g/dL (3.5-5.1); Alkaline Phosphatase 102 U/L (38-126); Anion Gap 13 mmol/L (4-12); Aspartate Amino Transferase 40 U/L (14-36); Bilirubin,Total 0.4 mg/dL (0.2-1.3); Blood Urea Nitrogen 11 mg/dL (7-17); Calcium 9.3 mg/dL (8.4-10.2); Carbon Dioxide 19 mmol/L (22-30); Chloride 105 mmol/L (98-107); Estimated CRCL calculation 123 ml/min; Estimated Glomerular Filt Rate > 60; Glucose 173 mg/dL (65-110); Lipase 82 U/L (23-300); Sodium 137 mmol/L (137-145)
[2024-04-15] MEDS: LACTATED RINGERS 1,000 ML 999 ML IV CONT (23:35)
[2024-04-15 23:41] LABS: BEDSIDEPREGUCG Negative (Negative)
[2024-04-15 23:43] LABS: Add Urine Microscopic? NO; Appearance Urine Clear (Clear); Bilirubin Urine Negative (Negative); Blood Urine Negative (Negative); Color Urine Yellow (Yellow); Glucose Urine UA Negative (Negative); Ketones Urine Negative (Negative); Leukocyte Esterase Ur Negative LEU/UL (Negative); Nitrate Urine Negative (Negative); Protein Urine Negative (Negative); Specific Grav Ur 1.024 (1.001-1.035); pH Urine 5.5 (5.0-9.0)
[2024-04-16 00:18] LABS: Influenza A QL RT-PCR Negative (Negative); Influenza B QL RT-PCR Negative (Negative); RSV RNA, RT-PCR Negative (Negative); SARS-CoV-2 RNA PCR Negative (Negative)
[2024-04-16 00:27] VITALS: BP 105/83; PULSE 74; RESP 16; TEMP 36.6; O2SAT 99
== END 2024-04-16 00:28 | disposition home or self-care (01) ==
PROVIDERS: Emergency Provider Emergency Medicine; PCP Nurse Practitioner Family
DX: R11.2 Nausea with vomiting, unspecified (principal); R19.7 Diarrhea, unspecified; R10.13 Epigastric pain; Z20.822 Contact with and (suspected) exposure to COVID-19; J45.909 Unspecified asthma, uncomplicated; E78.00 Pure hypercholesterolemia, unspecified; F41.9 Anxiety disorder, unspecified; F32.A Depression, unspecified; Z87.891 Personal history of nicotine dependence; Z90.49 Acquired absence of other specified parts of digestive tract; Z79.899 Other long term (current) drug therapy
CPT/HCPCS: 36415; 80053; 81003; 81025; 83690; 85025; 87637; 96361; 96374; 96375; 99284; J2405; J2470; J7120

== ENCOUNTER 2024-05-06 22:53 | Emergency (ER) | payer BC, SELFPAY ==
[2024-05-06 22:55] VITALS: BP 146/96; PULSE 90; RESP 16; TEMP 36.4; O2SAT 100
--- NOTE | 2024-05-07 00:03 | ED.DENTAL ---
HPI - Dental/Oral General Chief complaint: Dental/Oral Stated complaint: broken teeth on L. side with swelling Time Seen by Provider: 05/06/24 23:37 Source: patient Mode of arrival: ambulatory Limitations: no limitations History of Present Illness HPI Narrative: This is a 33-year-old female who presents to the ED for chief complaint of left-sided dental pain for the past 2 days. Reports she has multiple broken teeth on the left side hand knows she needs to get into a dentist. She recently got a new job and dental insurance and is trying to get in this coming week. States that she has started to have some left-sided facial swelling with pain radiating up into the cheek and left ear. Denies fevers, chills, immunocompromised condition, trismus, drooling. Related Data Home Medications Medication Instructions Recorded Confirmed epinephrine 0.3 mg/0.3 mL 0.3 ml subcut DAILY PRN Allergic 04/21/21 07/21/23 injection, auto-injector Reaction omeprazole 20 mg capsule,delayed 20 mg PO DAILY PRN Heartburn 09/10/22 07/21/23 release cholecalciferol (vitamin D3) 25 25 mcg PO WEEKLY 09/07/23 mcg (1,000 unit) tablet folic acid 400 mcg tablet 0.4 mg PO DAILY 09/07/23 hydroxyzine pamoate 25 mg capsule 25 mg PO QHS 09/07/23 lurasidone 40 mg tablet 40 mg PO DAILY 09/07/23 prazosin 2 mg capsule 2 mg PO QHS 09/07/23 Allergies Allergy/AdvReac Type Severity Reaction Status Date / Time shellfish derived Allergy Intermediate Swelling Verified 05/06/24 22:54 Review of Systems Review of Systems: All systems as dictated in HPI [facility] Past Medical History Medical History Anxiety and depression Asthma Bipolar 1 disorder Fatty liver Heartburn High cholesterol History of esophageal dilatation Surgical History Surgical History History of appendectomy History of esophagogastroduodenoscopy History of incisional hernia repair 09/25/22 robotic laparoscopic repair periumbilical incisional hernias, 5 cm, with Ventralight ST underlay mesh Hx of cholecystectomy Family History Family History Grandparent Diabetes mellitus Pancreatic cancer Mother Graves disease Hyperthyroidism Shar's disease Father Gallbladder disease Social History Social History Social History: the patient uses marijuana for her anxiety. She has 2 children and is . 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 The patient used to smoke cigarettes. She quit drinking when she found out she has a fatty liver. She does not have a durable power [place] attorney for healthcare. Code status full code Smoking packs per day: 0.05 Smoking cigarettes per day: 1.0 Years smoked: 2 Smoking pack-years: 0.10 Smoking status: Never smoker Tobacco type: cigarettes Second hand tobacco smoke exposure: Yes (parent smokes outside) Alcohol intake: former Alcohol use details: quit drinking in January due to liver issues. used to have 2-3 beers a week Substance use: current Substance use type: marijuana Last use: 09-10-22 Living arrangements: with family Spiritual care concerns: No Exam Narrative: GENERAL: Well-appearing, well-nourished, and in no acute distress. HEAD: Normocephalic, atraumatic. EYES: PERRLA and EOMI. ENT: Poor dentition throughout. Multiple caries noted on the left side dental decay and mild gingival swelling. No appreciable abscess on exam. Nares clear, no rhinorrhea or epistaxis. Mucous membranes moist. Oropharynx without tonsillar hypertrophy exudate or other lesions. NECK: Supple. No adenopathy or masses. CHEST: No respiratory distress. Clear to auscultation. No wheezes rales or rhonchi HEART: Regular rate and rhythm. No murmur heard. Normal peripheral pulses. ABDOMEN: Soft, nontender, nondistended, normal active bowel sounds. MSK: Normal range of motion. No edema. SKIN: Warm, dry, no rash. NEURO: Alert and oriented x4. No focal deficits. PSYCH: Normal mood and affect. Course Vital Signs Vital signs: Vital Signs Temperature 97.6 F 05/06/24 22:55 Pulse Rate 90 05/06/24 22:55 Respiratory Rate 16 05/06/24 22:55 Blood Pressure 146/96 H 05/06/24 22:55 Pulse Oximetry 100 05/06/24 22:55 Oxygen Delivery Room Air 05/06/24 22:55 Temperature 97.6 F 05/06/24 22:55 Pulse Rate 80 05/07/24 00:59 Respiratory Rate 14 05/07/24 00:59 Blood Pressure 140/92 H 05/07/24 00:59 Pulse Oximetry 99 05/07/24 00:59 Oxygen Delivery Room Air 05/06/24 22:55 Procedures Nerve Block Nerve Block 1: Nerve block date: 05/07/24 Nerve block time: 00:32 Time out performed: No Local Anesthetic: lidocaine 1% Side: left Intraoral Nerve Block: superior alveolar Procedure Successful: Yes Patient Tolerated Procedure: well Complications: none Nerve Block 2: Nerve block date: 05/07/24 Nerve block time: 00:39 Time out performed: No Local Anesthetic: bupivacaine 0.25% Amount of anesthesia used (mL): 1 Side: left Intraoral Nerve Block: supraperiosteal Procedure Successful: Yes Patient Tolerated Procedure: well Complications: none MDM - Dental/Oral MDM Narrative Medical decision making narrative: This is a 33 yo female who presents to the ED for dental pain. Vitals are normal. Exam shows dental decay and multiple locations Superior alveolar block and supra periosteal block with good effect. Patient has dental follow-up for next week. Rx for Augmentin Toradol prescribed. Patient will be discharged in stable condition. Supportive measures discussed and return precautions given. Patient is understanding and agreeable with plan for discharge with PCP follow-up. Discharge Plan Discharge Clinical Impression: Dental caries Patient Disposition: Home, Self-Care Condition: Stable Instructions: Antibiotic Form Additional Instructions: Your exam shows dental decay and needs to be treated definitively by a dentist. Please take antibiotics as prescribed. Use Toradol for pain control for the next 5 days. If you have any new or worsening symptoms please return to the ER for further evaluation. Prescriptions: New amoxicillin-pot clavulanate 875-125 mg tablet 1 tablet PO Q12H Qty: 14 0RF ketorolac 10 mg tablet 10 mg PO Q8H PRN (Reason: pain) Qty: 15 0RF Rx Instructions: maximum total duration of 5 days from all oral, intranasal, or parenteral formulations No Action budesonide-formoterol 160-4.5 mcg/actuation HFA aerosol inhaler 2 puff inhalation Q12H Qty: 10.2 3RF eszopiclone 2 mg tablet 2 mg PO QHS Qty: 1 0RF lurasidone 40 mg tablet 40 mg PO DAILY Rx Instructions: must administer with food (at least 350 calories) prazosin 2 mg capsule 2 mg PO QHS folic acid 400 mcg tablet 0.4 mg PO DAILY cholecalciferol (vitamin D3) 25 mcg (1,000 unit) tablet 25 mcg PO WEEKLY hydroxyzine pamoate 25 mg capsule 25 mg PO QHS omeprazole 20 mg capsule,delayed release(DR/EC) 20 mg PO DAILY PRN (Reason: Heartburn) epinephrine 0.3 mg/0.3 mL auto-injector 0.3 ml subcut DAILY PRN (Reason: Allergic Reaction) famotidine 20 mg tablet 20 mg PO DAILY Qty: 30 0RF alum-mag hydroxide-simeth [Maalox Advanced] 200-200-20 mg/5 mL suspension 10 ml PO QID PRN (Reason: dyspepsia) Qty: 300 0RF Rx Instructions: administer between meals and at bedtime ondansetron 4 mg tablet,disintegrating 4 mg PO Q8H PRN (Reason: nausea and vomiting) Qty: 10 0RF bismuth subsalicylate [Bismuth] 262 mg tablet,chewable 2 tablet PO QID 3 Days Qty: 24 0RF albuterol sulfate 90 mcg/actuation HFA aerosol inhaler See Rx Instructions .ROUTE .COMPLEX Qty: 9 6RF Dose Instruction: INHALE 2 PUFFS BY MOUTH EVERY 4 HOURS NEEDED FOR SHORTNESS OF BREATH OR WHEEZING Rx Instructions: INHALE 2 PUFFS BY MOUTH EVERY 4 HOURS NEEDED FOR SHORTNESS OF BREATH OR WHEEZING Follow-up/Referrals: Shelia,Martha Cullen APRN [Primary Care Provider] - Stand Alone Forms: Work/School Release IP Time of Disposition: 00:43
[2024-05-07] MEDS: LIDOCAINE HCL 2% VISC SOLN 15 ML UDC PO (00:15)
[2024-05-07 00:59] VITALS: BP 140/92; PULSE 80; RESP 14; O2SAT 99
== END 2024-05-07 01:00 | disposition home or self-care (01) ==
PROVIDERS: Emergency Provider Physician Assistant; PCP Nurse Practitioner Family
DX: K02.9 Dental caries, unspecified (principal); J45.909 Unspecified asthma, uncomplicated; E78.00 Pure hypercholesterolemia, unspecified; F41.9 Anxiety disorder, unspecified; F31.9 Bipolar disorder, unspecified; Z90.49 Acquired absence of other specified parts of digestive tract; Z87.891 Personal history of nicotine dependence; Z79.899 Other long term (current) drug therapy
CPT/HCPCS: 64400; 64999; 99283

== ENCOUNTER 2024-07-05 03:55 | Emergency (ER) | payer BC, SELFPAY ==
--- NOTE | ~2024-07-05 | XR_ITS ---
EXAMINATION: XR shoulder RT min 2V DATE: 07/05/2024 07:33 INDICATION: Right shoulder pain. TECHNIQUE: 4 views of right shoulder were obtained. COMPARISON: None. FINDINGS: Bone alignment is normal. No fracture. Joint spaces are normal. IMPRESSION: 1. Normal right shoulder. Reviewed, dictated and finalized at location A. OFFICER IMPRESSION: 1. Normal right shoulder.
--- NOTE | ~2024-07-05 | XR_ITS ---
EXAMINATION: [id number] DATE: 07/05/2024 07:33 INDICATION: Neck pain. TECHNIQUE: 3 views of cervical spine were obtained. COMPARISON: CT cervical spine 07/10/2021 FINDINGS: There is 5 degrees levocurvature of cervical spine. There is kyphosis of cervical spine. Ve rtebral body heights are normal. There is mildly decreased disc height at C5-C6 and C6-C7. There is m ultilevel [id number] facet joint osteoarthritis. No central canal stenosis or prevertebral soft tissue swelling. IMPRESSION: 1. Mild cervical spondylosis. Reviewed, dictated and finalized at location A. PORTER
[2024-07-05 03:59] VITALS: BP 138/86; PULSE 99; RESP 15; TEMP 36.1; O2SAT 100
--- NOTE | 2024-07-05 08:11 | ED_ITS ---
HPI - General Adult General Chief complaint: Extremity Injury, Upper Stated complaint: R arm pain x 3 days Time Seen by Provider: 07/05/24 08:04 History of Present Illness HPI narrative: 33-year-old female present to the emergency department for evaluation for right lateral neck and right shoulder pain this started bothering her on Thursday morning. Patient states she has been doing some lifting for work but also was concerned that maybe she slept on it wrong. Patient denies any associated numbness or weakness. Patient did try ibuprofen for pain control with no significant improvement. Related Data Home Medications Medication Instructions Recorded Confirmed epinephrine 0.3 mg/0.3 mL 0.3 ml subcut DAILY PRN Allergic 04/21/21 07/21/23 injection, auto-injector Reaction omeprazole 20 mg capsule,delayed 20 mg PO DAILY PRN Heartburn 09/10/22 07/21/23 release cholecalciferol (vitamin D3) 25 25 mcg PO WEEKLY 09/07/23 mcg (1,000 unit) tablet folic acid 400 mcg tablet 0.4 mg PO DAILY 09/07/23 hydroxyzine pamoate 25 mg capsule 25 mg PO QHS 09/07/23 lurasidone 40 mg tablet 40 mg PO DAILY 09/07/23 prazosin 2 mg capsule 2 mg PO QHS 09/07/23 Allergies Allergy/AdvReac Type Severity Reaction Status Date / Time shellfish derived Allergy Intermediate Swelling Verified 07/05/24 08:16 Review of Systems Review of Systems: All systems reviewed & are unremarkable except as noted in HPI and below PMFSH Past Medical History Medical History Anxiety and depression Asthma Bipolar 1 disorder Fatty liver Heartburn High cholesterol History of esophageal dilatation Surgical History Surgical History History of appendectomy History of esophagogastroduodenoscopy History of incisional hernia repair 09/25/22 robotic laparoscopic repair periumbilical incisional hernias, 5 cm, with Ventralight ST underlay mesh Hx of cholecystectomy Family History Family History Grandparent Diabetes mellitus Pancreatic cancer Mother Graves disease Hyperthyroidism Shar's disease Father Gallbladder disease Social History Social History Social History: the patient uses marijuana for her anxiety. She has 2 children and is . 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 The patient used to smoke cigarettes. She quit drinking when she found out she has a fatty liver. She does not have a durable power document review attorney for healthcare. Code status full code Smoking packs per day: 0.05 Smoking cigarettes per day: 1.0 Years smoked: 2 Smoking pack-years: 0.10 Smoking status: Never smoker Tobacco type: cigarettes Second hand tobacco smoke exposure: Yes (parent smokes outside) Alcohol intake: former Alcohol use details: quit drinking in January due to liver issues. used to have 2- 3 beers a week Substance use: current Substance use type: marijuana Last use: 09-10-22 Living arrangements: with family Spiritual care concerns: No Exam Narrative: APPEARANCE: Well appearing, no pain, no distress, well-nourished. HEAD: normocephalic, atraumatic. EYES: PERRLA/EOMI, conjunctivae clear. NOSE: Normal no drainage EARS:TMS clear with good light reflex. THROAT: Pharynx clear, no exudate. NECK: Supple. No adenopathy, no masses. RESPIRATORY: Airway patent, respirations nonlabored. Clear to auscultation bilaterally, no rales, rhonchi, wheezing. CARDIOVASCULAR: Regular rate and rhythm without murmurs rubs or gallops. ABDOMINAL: Soft, nontender, nondistended, normal bowel sounds MUSCULOSKELETAL: Right lateral neck and muscular tenderness, no midline deformity NEURO: Alert. Cranial nerves II through XII intact. Grossly intact SKIN: Warm, dry. Normal Color Course Vital Signs Vital signs: Vital Signs Temperature 97 F L 07/05/24 03:59 Pulse Rate 99 07/05/24 03:59 Respiratory Rate 15 07/05/24 03:59 Blood Pressure 138/86 07/05/24 03:59 Pulse Oximetry 100 07/05/24 03:59 Oxygen Delivery Room Air 07/05/24 03:59 Temperature 97.6 F 07/05/24 09:01 Pulse Rate 86 07/05/24 09:01 Respiratory Rate 15 07/05/24 09:01 Blood Pressure 130/80 07/05/24 09:01 Pulse Oximetry 97 07/05/24 09:01 Oxygen Delivery Room Air 07/05/24 03:59 Medical Decision Making MDM Narrative Medical decision making narrative: 33-year-old female present to the emergency department for evaluation for right shoulder pain and right lateral neck pain. Imaging was negative for acute fracture dislocation. Differential Diagnosis Differential Diagnosis: Torticollis, muscular strain, trapezius strain. Vital Signs Vital Signs: Vital Signs Temperature 97 F L 07/05/24 03:59 Pulse Rate 99 07/05/24 03:59 Respiratory Rate 15 07/05/24 03:59 Blood Pressure 138/86 07/05/24 03:59 Pulse Oximetry 100 07/05/24 03:59 Oxygen Delivery Room Air 07/05/24 03:59 Temperature 97.6 F 07/05/24 09:01 Pulse Rate 86 07/05/24 09:01 Respiratory Rate 15 07/05/24 09:01 Blood Pressure 130/80 07/05/24 09:01 Pulse Oximetry 97 07/05/24 09:01 Oxygen Delivery Room Air 07/05/24 03:59 Imaging Data Radiologist's impression: Impressions Cervical Spine X-Ray 07/05/24 07:36 IMPRESSION: 1. Mild cervical spondylosis. Shoulder X-Ray 07/05/24 07:38 IMPRESSION: 1. Normal right shoulder. Discharge Plan Discharge Clinical Impression: Acute shoulder pain Patient Disposition: Home, Self-Care Condition: Stable Instructions: Antibiotic Form, How to Use a Sling (ED), Shoulder Pain (ED) Additional Instructions: Scheduled ibuprofen for pain control. Flexeril for muscle spasm. Tylenol for pain control. For additional pain control replace the Tylenol with Empire. Do not take Tylenol and Empire at the same time as both contain acetaminophen. Have close follow-up with her primary care physician Prescriptions: New cyclobenzaprine 10 mg tablet 10 mg PO BID PRN (Reason: muscle spasm) Qty: 14 0RF hydrocodone-acetaminophen 5-325 mg tablet 1 tablet PO Q12H PRN (Reason: pain) Qty: 14 0RF No Action budesonide-formoterol 160-4.5 mcg/actuation HFA aerosol inhaler 2 puff inhalation Q12H Qty: 10.2 3RF eszopiclone 2 mg tablet 2 mg PO QHS Qty: 1 0RF lurasidone 40 mg tablet 40 mg PO DAILY Rx Instructions: must administer with food (at least 350 calories) prazosin 2 mg capsule 2 mg PO QHS folic acid 400 mcg tablet 0.4 mg PO DAILY cholecalciferol (vitamin D3) 25 mcg (1,000 unit) tablet 25 mcg PO WEEKLY hydroxyzine pamoate 25 mg capsule 25 mg PO QHS omeprazole 20 mg capsule,delayed release(DR/EC) 20 mg PO DAILY PRN (Reason: Heartburn) amoxicillin-pot clavulanate 875-125 mg tablet 1 tablet PO Q12H Qty: 14 0RF ketorolac 10 mg tablet 10 mg PO Q8H PRN (Reason: pain) Qty: 15 0RF Rx Instructions: maximum total duration of 5 days from all oral, intranasal, or parenteral formulations epinephrine 0.3 mg/0.3 mL auto-injector 0.3 ml subcut DAILY PRN (Reason: Allergic Reaction) famotidine 20 mg tablet 20 mg PO DAILY Qty: 30 0RF alum-mag hydroxide-simeth [Maalox Advanced] 200-200-20 mg/5 mL suspension 10 ml PO QID PRN (Reason: dyspepsia) Qty: 300 0RF Rx Instructions: administer between meals and at bedtime ondansetron 4 mg tablet,disintegrating 4 mg PO Q8H PRN (Reason: nausea and vomiting) Qty: 10 0RF bismuth subsalicylate [Bismuth] 262 mg tablet,chewable 2 tablet PO QID 3 Days Qty: 24 0RF albuterol sulfate 90 mcg/actuation HFA aerosol inhaler See Rx Instructions .ROUTE .COMPLEX Qty: 9 6RF Dose Instruction: INHALE 2 PUFFS BY MOUTH EVERY 4 HOURS NEEDED FOR SHORTNESS OF BREATH OR WHEEZING Rx Instructions: INHALE 2 PUFFS BY MOUTH EVERY 4 HOURS NEEDED FOR SHORTNESS OF BREATH OR WHEEZING Follow-up/Referrals: Shelia,Martha Cullen APRN [Primary Care Provider] - Stand Alone Forms: Work/School Release IP
[2024-07-05 08:15] VITALS: BP 124/66; PULSE 89; RESP 17; TEMP 36.4; O2SAT 97
[2024-07-05] MEDS: CYCLOBENZAPRINE HCL 10 MG TABLET PO (08:24)
[2024-07-05] MEDS: KETOROLAC 30 MG/ML VIAL (*BKC) IM (08:25)
[2024-07-05 09:01] VITALS: BP 130/80; PULSE 86; RESP 15; TEMP 36.4; O2SAT 97
== END 2024-07-05 09:03 | disposition home or self-care (01) ==
LOC: ANHED 08:19
PROVIDERS: Emergency Provider Emergency Medicine; PCP Nurse Practitioner Family
DX: M25.511 Pain in right shoulder (principal); M47.812 Spondylosis without myelopathy or radiculopathy, cervical region; F41.9 Anxiety disorder, unspecified; F32.A Depression, unspecified; E78.5 Hyperlipidemia, unspecified
CPT/HCPCS: 72040; 73030; 96372; 99284; A4565; A9270; J1885